=== PATIENT | male | born 1960 | race African-American/Black ===

== ENCOUNTER 2017-04-21 23:24 | Emergency (ER) | payer OTHER ==
[2017-04-21 23:33] VITALS: BP 144/83; PULSE 70; TEMP 98.2; BMI 31.4
--- NOTE | 2017-04-21 23:45 | PDOC ---
History of Present Illness - General History Source: Patient Exam Limitations: No Limitations <Melvina Finn - Last Filed: 04/22/17 00:33> <Yani Velasco - Last Filed: 04/23/17 01:49> - General Chief Complaint: Palpitations Stated Complaint: PAIN Time Seen by Provider: 04/21/17 23:44 - History of Present Illness Initial Comments: 04/22/17 00:04 The patient is a 56 year old male with history of hypertension brought in by EMS after feeling faint tonight. He states he was at home doing nothing in particular when he began to experience palpitations and generalized weakness. He states he felt lightheaded and faint while lying flat, unclear whether he lost consciousness. No fall or head trauma, witnessed by family at home. Family activated EMS. On evaluation, the patient is without physical complaint. No fever or chills. No nausea, vomiting, or diaphoresis. No chest pain. States he had a similar episode of near-syncope in December when he was found to be hypokalemic. 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 (Melvina Finn) Past History <Melvina Finn - Last Filed: 04/22/17 00:33> - Past Medical History COPD: No HTN: Yes Hypercholesterolemia: Yes - Suicide/Smoking/Psychosocial Hx Smoking History: Never smoked <Yani Velasco - Last Filed: 04/23/17 01:49> - Past Medical History Allergies/Adverse Reactions: Allergies Allergy/AdvReac Type Severity Reaction Status Date / Time No Known Allergies Allergy Verified 04/21/17 23:33 Home Medications: Ambulatory Orders Amlodipine Besylate [Norvasc -] 5 mg PO DAILY 04/21/17 Aspirin Coated [Ecotrin -] 325 mg PO DAILY 04/21/17 Atorvastatin Ca [Lipitor] 20 mg PO HS 04/21/17 Hydrochlorothiazide [Hctz -] 25 mg PO DAILY 04/21/17 Lisinopril [Prinivil] 20 mg PO DAILY 04/21/17 Metoprolol Succinate [Toprol Xl -] 25 mg PO BID 04/21/17 Review of Systems - Review of Systems Able to Perform ROS?: Yes <Melvina Finn - Last Filed: 04/22/17 00:33> <Yani Velasco - Last Filed: 04/23/17 01:49> - Review of Systems Comments:: 04/22/17 00:09 GENERAL/CONSTITUTIONAL: +Generalized weakness. No fever or chills. HEAD, EYES, EARS, NOSE AND THROAT: No change in vision. No ear pain or discharge. No sore throat. CARDIOVASCULAR: +Palpitations, lightheadedness, near syncope (resolved). No chest pain or shortness of breath. RESPIRATORY: No cough, wheezing, or hemoptysis. GASTROINTESTINAL: No nausea, vomiting, diarrhea or constipation. GENITOURINARY: No dysuria, frequency, or change in urination. MUSCULOSKELETAL: No joint or muscle swelling or pain. No neck or back pain. SKIN: No rash NEUROLOGIC: No headache, vertigo, loss of consciousness, or change in strength/ sensation. ENDOCRINE: No increased thirst. No abnormal weight change. HEMATOLOGIC/LYMPHATIC: No anemia, easy bleeding, or history of blood clots. ALLERGIC/IMMUNOLOGIC: No hives or skin allergy. (Melvina Finn) *Physical Exam <Melvina Finn - Last Filed: 04/22/17 00:33> <Yani Velasco - Last Filed: 04/23/17 01:49> - Vital Signs Last Vital Signs Temp Pulse Resp BP Pulse Ox 98.2 F 70 16 144/83 99 04/21/17 23:28 04/21/17 23:28 04/21/17 23:28 04/21/17 23:28 04/21/17 23:28 - Physical Exam Comments: 04/22/17 00:10 GENERAL: Awake, alert, and fully oriented, in no acute distress HEAD: No signs of trauma EYES: PERRLA, EOMI, sclera anicteric, conjunctiva clear ENT: Auricles normal inspection, nares patent. Moist mucosa NECK: Normal ROM, supple, no JVD, or masses LUNGS: Breath sounds equal, clear to auscultation bilaterally. No wheezes, and no crackles HEART: Regular rate and rhythm, normal S1 and S2, no murmurs, rubs or gallops ABDOMEN: Soft, nontender, normoactive bowel sounds. No guarding, no rebound. No masses EXTREMITIES: Normal range of motion, no edema. No clubbing or cyanosis. No cords, erythema, or tenderness NEUROLOGICAL: Alert and oriented x 3. Moves all extremities. Face is symmetric. SKIN: Warm, Dry, normal turgor, no rashes or lesions noted. (Melvina Finn) Heart Score/ECG Review <Melvina Finn - Last Filed: 04/22/17 00:33> <Yani Velasco - Last Filed: 04/23/17 01:49> #1 04/22/17 00:33 EKG obtained 0:31. Normal sinus rhythm at 66 bpm. Rightward axis. Borderline EKG. (Melvina Finn) ED Treatment Course - LABORATORY CBC & Chemistry Diagram: 04/22/17 01:11 04/22/17 02:13 <Yani Velasco - Last Filed: 04/23/17 01:49> - ADDITIONAL ORDERS Additional order review: 04/22/17 01:11 RBC 4.91 MCV 92.7 MCHC 33.4 RDW 13.2 MPV 10.0 Neutrophils % 73.6 Lymphocytes % 15.2 Monocytes % 10.3 H Eosinophils % 0.5 Basophils % 0.4 - RADIOLOGY Radiology Studies Ordered: Category Date Time Status CHEST X-RAY PORTABLE* [RAD] Stat Radiology 04/22/17 00:14 Completed - Medications Given in the ED: ED Medications Discontinued Medications Generic Name Dose Route Start Last Admin Trade Name Vanceq PRN Reason Stop Dose Admin Aspirin 162 mg 04/21/17 23:53 04/22/17 01:14 Asa - PO 04/21/17 23:54 162 mg ONCE ONE Administration *DC/Admit/Observation/Transfer <Melvina Finn - Last Filed: 04/22/17 00:33> <Yani Velasco - Last Filed: 04/23/17 01:49> Diagnosis at time of Disposition: Palpitations - Patient Instructions Printed Discharge Instructions: DI for Palpitations Additional Instructions: Take all home medications as prescribed. Follow-up with her primary care provider this week. Return to emergency department for any severe worsening symptoms or for any concerns. - Post Discharge Activity Forms/Work/School Notes: Back to Work - Attestations Scribe Attestion: 04/22/17 00:10 Documentation prepared by Melvina Finn, acting as medical geneticist for Yani Velasco MD. (Melvina Finn)
[2017-04-21] MEDS ORDERED: ASPIRIN 81 MG CHEWABLE TABLETS PO ONE (23:53)
[2017-04-22] MEDS ORDERED: ASPIRIN 81 MG CHEWABLE TABLETS ONE (00:57)
[2017-04-22 01:19] LABS: BASO % 0.4 % (0-2.0); EOS % 0.5 % (0-4.5); HEMATOCRIT 45.5 % (35.4-49); HEMOGLOBIN 15.2 GM/dL (11.7-16.9); LYMPH % 15.2 % (8-40); MCHC 33.4 g/dl (32.0-35.9); MEAN CELL VOLUME 92.7 fl (80-96); MONO % 10.3 % (3.8-10.2); NEUT % 73.6 % (42.8-82.8); PLATELET COUNT 166 K/MM3 (134-434); RBC 4.91 M/mm3 (4.00-5.60); RDW 13.2 % (11.9-15.9); WHITE BLOOD COUNT 10.6 K/mm3 (4.0-10.0)
[2017-04-22 01:51] LABS: INR 1.22 (0.82-1.09); PROTHROMBIN TIME (PATIENT) 13.8 SEC (9.98-11.88)
[2017-04-22 02:55] LABS: ALBUMIN 3.9 g/dl (3.4-5.0); ANION GAP 7 (8-16); BILIRUBIN,TOTAL 0.4 mg/dL (0.2-1.0); BLOOD UREA NITROGEN 17 mg/dL (7-18); CALCIUM 8.6 mg/dL (8.5-10.1); CHLORIDE 105 mmol/L (98-107); CO2 32 mmol/L (21-32); CREATININE 1.5 mg/dL (0.7-1.3); GLUCOSE,RANDOM 88 mg/dL (74-106); POTASSIUM 4.1 mmol/L (3.5-5.1); SGOT/AST 25 U/L (15-37); SGPT/ALT 36 U/L (12-78); SODIUM 144 mmol/L (136-145); TOT PROT 7.4 g/dl (6.4-8.2)
[2017-04-22 02:57] LABS: ALK PHOS 75 U/L (45-117); N-TERMINAL BNP 36.19 pg/ml (5-125)
--- NOTE | 2017-04-22 04:03 | PDOC ---
*Physical Exam - Vital Signs Last Vital Signs Temp Pulse Resp BP Pulse Ox 98.2 F 70 16 144/83 99 04/21/17 23:28 04/21/17 23:28 04/21/17 23:28 04/21/17 23:28 04/21/17 23:28 - Physical Exam General Appearance: Yes: Appropriately Dressed Respiratory/Chest: positive: Lungs Clear, Normal Breath Sounds Cardiovascular: positive: Regular Rhythm, Regular Rate ED Treatment Course - LABORATORY CBC & Chemistry Diagram: 04/22/17 01:11 04/22/17 02:13 - ADDITIONAL ORDERS Additional order review: Laboratory Results 04/22/17 04/22/17 04/22/17 02:40 02:13 01:11 PT with INR INR Sodium 144 Cancelled Potassium 4.1 Cancelled Chloride 105 Cancelled Carbon Dioxide 32 Cancelled Anion Gap 7 L Cancelled BUN 17 Cancelled Creatinine 1.5 H Cancelled Creat Clearance w eGFR 48.07 Cancelled Random Glucose 88 Cancelled Calcium 8.6 Cancelled Magnesium Cancelled Total Bilirubin 0.4 Cancelled AST 25 Cancelled ALT 36 Cancelled Alkaline Phosphatase 75 Cancelled Creatine Kinase 165 Cancelled Creatine Kinase Index 0.6 CK-MB (CK-2) < 1.000 Troponin I < 0.02 < 0.02 Cancelled B-Natriuretic Peptide 36.19 Cancelled Total Protein 7.4 Cancelled Albumin 3.9 Cancelled 04/22/17 01:11 PT with INR 13.80 H INR 1.22 H Sodium Potassium Chloride Carbon Dioxide Anion Gap BUN Creatinine Creat Clearance w eGFR Random Glucose Calcium Magnesium Total Bilirubin AST ALT Alkaline Phosphatase Creatine Kinase Creatine Kinase Index CK-MB (CK-2) Troponin I B-Natriuretic Peptide Total Protein Albumin 04/22/17 01:11 RBC 4.91 MCV 92.7 MCHC 33.4 RDW 13.2 MPV 10.0 Neutrophils % 73.6 Lymphocytes % 15.2 Monocytes % 10.3 H Eosinophils % 0.5 Basophils % 0.4 - Medications Given in the ED: ED Medications Discontinued Medications Generic Name Dose Route Start Last Admin Trade Name Freq PRN Reason Stop Dose Admin Aspirin 162 mg 04/21/17 23:53 04/22/17 01:14 Asa - PO 04/21/17 23:54 162 mg ONCE ONE Administration Medical Decision Making - Medical Decision Making 04/22/17 04:02 Asked to follow-up second troponin. Troponin negative 2. Heart score 1. Patient will follow-up with his primary care provider this week Findings, the need for follow-up, strict return instructions discussed with patient. *DC/Admit/Observation/Transfer Diagnosis at time of Disposition: Palpitations - Discharge Dispostion Admit: No - Referrals - Patient Instructions Printed Discharge Instructions: DI for Palpitations Additional Instructions: Take all home medications as prescribed. Follow-up with her primary care provider this week. Return to emergency department for any severe worsening symptoms or for any concerns. - Post Discharge Activity Forms/Work/School Notes: Back to Work
--- NOTE | 2017-04-22 11:28 | EKG ---
Test Reason : Blood Pressure : / mmHG Vent. Rate : 066 BPM Atrial Rate : 066 BPM P-R Int : 192 ms QRS Dur : 084 ms QT Int : 400 ms P-R-T Axes : 038 095 048 degrees QTc Int : 419 ms NORMAL SINUS RHYTHM RIGHTWARD AXIS BORDERLINE ECG NO PREVIOUS ECGS AVAILABLE Confirmed by MD Thai, Tylor ([id number]) on 04/22/2017 11:28:30 AM Referred By: Confirmed By:Tylor Andre MD
== END 2017-04-22 04:14 | disposition home or self-care (01) ==
LOC: JER 23:24
DX: R00.2 Palpitations (principal); I10 Essential (primary) hypertension; E78.00 Pure hypercholesterolemia, unspecified
CPT/HCPCS: 36415; 71045-TC-FY; 80053; 82550; 82553; 83880; 84484; 85025; 85610; 93005; 93010; 99281-25

== ENCOUNTER 2019-01-06 | Observation (INO) | payer OTHER ==
[2019-01-06 00:56] VITALS: BMI 31.8
--- NOTE | 2019-01-06 01:54 | PDOC ---
Attending Attestation - Resident Resident Name: Randee Urban - ED Attending Attestation I have performed the following: I have examined & evaluated the patient, The case was reviewed & discussed with the resident, I agree w/resident's findings & plan - HPI HPI: 01/06/19 03:01 see resident hpi - Physicial Exam PE: 01/06/19 03:01 agree with resident exam - Medical Decision Making 01/06/19 03:01 58-year-old male with palpitations while trying to sleep EKG shows some new T wave abnormalities in inferior lateral leads Patient does have a history of hypercholesterolemia and hypertension He will be held on medical service for observation and serial enzymes
--- NOTE | 2019-01-06 02:49 | PDOC ---
History of Present Illness - General Chief Complaint: Palpitations Stated Complaint: PANIC ATTACK Time Seen by Provider: 01/06/19 01:50 - History of Present Illness Initial Comments: 01/06/19 02:47 The patient is a 58 y/o male with a PMHx of HTN and HLD who presents to our ED this morning c/o palpitations. Patient states around 10 p.m. he was getting ready for bed when he felt his heart was racing. Patient states symptoms lasted approximately five minutes and there was no associated chest pain, lightheadedness, palpitations. Past History - Past Medical History Allergies/Adverse Reactions: Allergies Allergy/AdvReac Type Severity Reaction Status Date / Time No Known Allergies Allergy Verified 01/06/19 00:56 Home Medications: Ambulatory Orders Amlodipine Besylate [Norvasc -] 10 mg PO DAILY 04/21/17 Aspirin Coated [Ecotrin -] 325 mg PO DAILY 04/21/17 Atorvastatin Ca [Lipitor] 20 mg PO HS 04/21/17 Hydrochlorothiazide [Hctz -] 25 mg PO DAILY 04/21/17 Metoprolol Succinate [Toprol Xl -] 25 mg PO BID 04/21/17 COPD: No HTN: Yes Hypercholesterolemia: Yes - Psycho Social/Smoking Cessation Hx Smoking History: Never smoked Review of Systems - Review of Systems Constitutional: No: Chills, Fever HEENTM: No: Recent change in vision Respiratory: No: Cough, Shortness of Breath Cardiac (ROS): Yes: Palpitations. No: Chest Pain, Lightheadedness ABD/GI: No: Constipated, Diarrhea, Nausea, Vomiting *Physical Exam - Vital Signs Last Vital Signs Temp Pulse Resp BP Pulse Ox 98.1 F 85 18 118/81 100 01/06/19 00:55 01/06/19 00:55 01/06/19 00:55 01/06/19 00:55 01/06/19 00:55 - Physical Exam General Appearance: Yes: Nourished, Appropriately Dressed HEENT: positive: Normal Voice, Hearing Grossly Normal Neck: positive: Trachea midline, Supple Respiratory/Chest: positive: Lungs Clear, Normal Breath Sounds Cardiovascular: positive: S1, S2. 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 VS unremarkable Will evaluated for r/o ACS in addition will consider anemia, anxiety, electrolyte derangement, dehydration. PLAN: Troponin, EKG, CXR Reassess 01/06/19 02:54 EKG with ischemic changes in lateral leads - will plan for admission Patient counseled on plan of care, amenable to admission 01/06/19 05:32 Case d/w inpatient hospitalist service, will admit OBS Tele Clinical Impression: r/o ACS Discharge - Discharge Information Problems reviewed: Yes Clinical Impression/Diagnosis: Palpitations Condition: Fair - Admission Yes - Follow up/Referral - Patient Discharge Instructions - Post Discharge Activity
[2019-01-06 03:22] LABS: BASO % 1.4 % (0-2.0); EOS % 0.4 % (0-4.5); HEMATOCRIT 47.1 % (35.4-49); LYMPH % 24.5 % (8-40); MCH 32.3 pg (25.7-33.7); MEAN CELL VOLUME 94.8 fl (80-96); MEAN PLT VOLUME 8.9 fl (7.5-11.1); MONO % 7.3 % (3.8-10.2); NEUT % 66.4 % (42.8-82.8); PLATELET COUNT 203 K/MM3 (134-434); RBC 4.97 M/mm3 (4.00-5.60); RDW 12.6 % (11.9-15.9); WHITE BLOOD COUNT 8.3 K/mm3 (4.0-10.0)
[2019-01-06 03:48] LABS: ALBUMIN 4.2 g/dl (3.4-5.0); BILIRUBIN,TOTAL 0.3 mg/dL (0.2-1); BLOOD UREA NITROGEN 9.9 mg/dL (7-18); CALCIUM 9.2 mg/dL (8.5-10.1); CREATININE 1.3 mg/dL (0.55-1.3); POTASSIUM 4.1 mmol/L (3.5-5.1); TOT PROT 7.9 g/dl (6.4-8.2)
--- NOTE | 2019-01-06 05:14 | PN ---
Teaching Attending Note Name of Resident: Tammy Doshi ATTENDING PHYSICIAN STATEMENT I saw and evaluated the patient. I reviewed the resident's note and discussed the case with the resident. I agree with the resident's findings and plan as documented. SUBJECTIVE: Patient is a 58 year old man with a PMH of HTN, Presyncope, Palpitations and HLD who presents to the ER with complaint of palpitations. Patient states around 10 p.m. he was getting ready for bed when he felt his heart was racing. Patient states symptoms lasted approximately five minutes and there was no associated chest pain, lightheadedness, nausea, vomiting, fever, chills, SOB, abdominal pain, dysuria, frequency or urgency. Denies tobacco, alcohol or illicit drug use. No recent travel or sick contacts. No FH of premature CAD. OBJECTIVE: Alert Vital Signs Period Temp Pulse Resp BP Sys/Dia Pulse Ox Last 24 Hr 98.1 F 85 18 118/81 100 HEENT: No Jaundice, eye redness or discharge, PERRLA, EOMI. Normocephalic, atraumatic. External ears are normal and hearing is grossly intact. No nasal discharge. Neck: Supple, nontender. No palpable adenopathy or thyromegaly. No JVD Chest: Good effort. Clear to auscultation and percussion. Heart: Regular. No S3, rub or murmur Abdomen: Not distended, soft, nontender and no HSM. No rebound or guarding. Normal bowel sounds. Ext: Peripheral pulses intact. Leg edema. Skin: Warm and dry. No petechiae, rash or ecchymosis. Neuro: Alert. Oriented x3. CN 2-12 grossly intact. Sensation grossly intact in all four extremities and DTR are symmetric. Psych: Appropriate mood and affect. Good insight. Home Medications Medication Instructions Recorded Amlodipine Besylate [Norvasc -] 10 mg PO DAILY 04/21/17 Aspirin Coated [Ecotrin -] 325 mg PO DAILY 04/21/17 Atorvastatin Ca [Lipitor] 20 mg PO HS 04/21/17 Hydrochlorothiazide [Hctz -] 25 mg PO DAILY 04/21/17 Metoprolol Succinate [Toprol Xl -] 25 mg PO BID 04/21/17 Abnormal Lab Results 01/06/19 03:00 Anion Gap 5 L Random Glucose 112 H ASSESSMENT AND PLAN: 1. Palpitations - Etiology unclear. EKG shows NSR with ?new T wave flattening in III, aVF and inversion in V4-6 and initial troponin is negative. CXR shows elevated right hemidiaphragm (chronic), but no infiltrates, pneumothorax or effusion. Will admit to telemetry to rule out ACS, get TSH, HbA1c, urinalysis, fasting lipid profile, urine toxicology, ECHO and consult cardiology. If workup is negative, will consider outpatient cardiac monitoring in view of prior episodes of palpitations. Will reduce amlodipine to 5 mg PO q HS since it may be contributing to leg edema. Get abdominal sonogram to investigate chronic right hemidiaphragm elevation. Will continue comprehensive care for all of patients comorbid conditions. 2. Obesity Counseled on the risks associated with obesity. Will provide patient all the necessary assistance, counseling and positive reinforcement to facilitate weight loss. Consult buildings and grounds coordinator. 3. Hypertension - Restart suitable outpatient antihypertensive drugs when clinically appropriate. Revise regimen to ensure [id number] excellent BP control and baby counselor patient on the injurious effects of uncontrolled hypertension. Nonpharmacologic measures to control hypertension like weight loss , salt restriction and exercise discussed. Importance of adherence to treatment regimen and attainment of normotension emphasized. 4. DVT prophylaxis - Lovenox 40 mg SQ q 24 hours. 5. Advance directives - Full code
--- NOTE | 2019-01-06 06:17 | HP ---
CHIEF COMPLAINT: unprovoked palpitations PCP: unknown HISTORY OF PRESENT ILLNESS: 58 year old male with past medical history of panic attacks, hypertension, hyperlipidemia presents to the ED with a chief complaint of heart palpitations. Around 10 pm last night, pt was lying flat on the bed watching television when he started feeling heart palpitations. 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 Patients endorses left sided chest pressure for the past few months which is evident after eating and reports that laying on his left side alleviates his symptoms. Pt complains of bilateral lower leg swelling which he started noticing after taking amlodipine. Denies orthopnea, paroxysmal nocturnal dyspnea, shortness of breath with exercise, fatigue, chest pain, dizziness, nausea, headaches, changes in bowel movement and changes in urination. ER course was notable for: (1) CBC and CMP unremarkable (2) EKG shows NSR with ?new T wave flattening in III, aVF and inversion in V4-6 and initial troponin is negative. (3) CXR shows elevated right hemidiaphragm (chronic), but no infiltrates, pneumothorax or effusion Recent Travel: denies PAST MEDICAL HISTORY: as above PAST SURGICAL HISTORY: none Social History: Smoking: denies Alcohol: denies Drugs: denies Allergies No Known Allergies Allergy (Verified 01/06/19 00:56) HOME MEDICATIONS: Home Medications Medication Instructions Recorded Amlodipine Besylate [Norvasc -] 10 mg PO DAILY 04/21/17 Aspirin Coated [Ecotrin -] 325 mg PO DAILY 04/21/17 Atorvastatin Ca [Lipitor] 20 mg PO HS 04/21/17 Hydrochlorothiazide [Hctz -] 25 mg PO DAILY 04/21/17 Metoprolol Succinate [Toprol Xl -] 25 mg PO BID 04/21/17 REVIEW OF SYSTEMS CONSTITUTIONAL: Absent: fever, chills, diaphoresis, generalized weakness, malaise, loss of appetite, weight change HEENT: Absent: rhinorrhea, nasal congestion, throat pain, throat swelling, difficulty swallowing, mouth swelling, ear pain, eye pain, visual changes CARDIOVASCULAR: palpitations Absent: chest pain, syncope, irregular heart rate, lightheadedness, peripheral edema RESPIRATORY: Absent: cough, shortness of breath, dyspnea with exertion, orthopnea, wheezing, stridor, hemoptysis GASTROINTESTINAL: Absent: abdominal pain, abdominal distension, nausea, vomiting, diarrhea, constipation, melena, hematochezia GENITOURINARY: Absent: dysuria, frequency, urgency, hesitancy, hematuria, flank pain, genital pain MUSCULOSKELETAL: Absent: myalgia, arthralgia, joint swelling, back pain, neck pain SKIN: Absent: rash, itching, pallor HEMATOLOGIC/IMMUNOLOGIC: Absent: easy bleeding, easy bruising, lymphadenopathy, frequent infections ENDOCRINE: Absent: unexplained weight gain, unexplained weight loss, heat intolerance, cold intolerance NEUROLOGIC: Absent: headache, focal weakness or paresthesias, dizziness, unsteady gait, seizure, mental status changes, bladder or bowel incontinence PSYCHIATRIC: Absent: anxiety, depression, suicidal or homicidal ideation, hallucinations. PHYSICAL EXAMINATION Vital Signs - 24 hr 01/06/19 01/06/19 00:55 05:38 Temperature 98.1 F Pulse Rate 85 Pulse Rate [ 68 Left Radial] Respiratory 18 18 Rate Blood Pressure 118/81 Blood Pressure 139/85 [Right Arm] O2 Sat by Pulse 100 99 Oximetry (%) GENERAL: Awake, alert, and fully oriented, in no acute distress. HEAD: Normal with no signs of trauma. EYES: Pupils equal, round and reactive to light, extraocular movements intact, sclera anicteric, conjunctiva clear. No lid lag. EARS, NOSE, THROAT: oropharynx clear without exudates. Moist mucous membranes. NECK: Normal range of motion, supple without lymphadenopathy, JVD, or masses. LUNGS: Breath sounds equal, clear to auscultation bilaterally. No wheezes, and no crackles. No accessory muscle use. HEART: Regular rate and rhythm, normal S1 and S2 without murmur, rub or gallop. ABDOMEN: Soft, nontender,obese, normoactive bowel sounds, no guarding, no rebound, umbilical hernia. No hepatomegaly or splenomegaly. MUSCULOSKELETAL: Normal range of motion at all joints. No bony deformities or tenderness. No CVA tenderness. UPPER EXTREMITIES: 2+ pulses, warm, well-perfused. No cyanosis. No clubbing. No peripheral edema. LOWER EXTREMITIES: 2+ pulses, warm, well-perfused. No calf tenderness. + peripheral edema. NEUROLOGICAL: Cranial nerves II-XII intact. Normal speech. Normal gait. PSYCHIATRIC: Cooperative. Good eye contact. Appropriate mood and affect. SKIN: Warm, dry, normal turgor, no rashes or lesions noted, normal capillary refill. Laboratory Results - last 24 hr 01/06/19 01/06/19 03:00 03:00 WBC 8.3 RBC 4.97 Hgb 16.0 Hct 47.1 MCV 94.8 MCH 32.3 MCHC 34.0 RDW 12.6 Plt Count 203 D MPV 8.9 D Absolute Neuts (auto) 5.5 Neutrophils % 66.4 Lymphocytes % 24.5 D Monocytes % 7.3 Eosinophils % 0.4 Basophils % 1.4 D Nucleated RBC % 0 Sodium 142 Potassium 4.1 Chloride 104 Carbon Dioxide 32 Anion Gap 5 L BUN 9.9 Creatinine 1.3 Est GFR (CKD-EPI)AfAm 68.74 Est GFR (CKD-EPI)NonAf 59.31 Random Glucose 112 H Calcium 9.2 Total Bilirubin 0.3 AST 26 ALT 30 Alkaline Phosphatase 101 Creatine Kinase 163 Creatine Kinase Index 0.6 CK-MB (CK-2) 1.1 Troponin I 0.03 Total Protein 7.9 Albumin 4.2 ASSESSMENT/PLAN: Unprovoked palpitations- unclear source admit to tele Cardiology Dr Simmons consulted repeat EKG trend trops. neg x1 echo for cardiac function assessment TSH, HbA1C, lipid panel UA urine toxicology if work up, unremarkable, consider o/p monitoring for arrhythmias or poss pAfib Elevated right hemidiaphragm abdominal US HTN resume home meds consider change to norvasc at night and at dose of 5mg to reduce leg edema HLD cont lipitor once med rec DVT lovenox daily Visit type - Emergency Visit Emergency Visit: Yes ED Registration Date: 01/06/19 Care time: The patient presented to the Emergency Department on the above date and was hospitalized for further evaluation of their emergent condition. - New Patient This patient is new to me today: Yes Date on this admission: 01/06/19 - Critical Care Critical Care patient: No ATTENDING PHYSICIAN STATEMENT I saw and evaluated the patient. I reviewed the resident's note and discussed the case with the resident. I agree with the resident's findings and plan as documented. SUBJECTIVE: OBJECTIVE: ASSESSMENT AND PLAN:
[2019-01-06 09:52] VITALS: TEMP 98.3
[2019-01-06] MEDS ORDERED: metoPROLOL SUCCINATE 25 MG TAB.SR.24H (FP) PO SCH ×2 (10:00→14:40)
[2019-01-06] MEDS ORDERED: ENOXAPARIN NA (PORCINE) 40 MG/0.4 ML DISP.SYRIN SQ SCH (10:00)
[2019-01-06] MEDS ORDERED: HYDROCHLOROTHIAZIDE 25 MG TABLET (FP) PO SCH (10:00)
--- NOTE | 2019-01-06 13:12 | ECHO ---
Name: TOÑO CHIU Exam:Adult Echocardiogram Study Date: 01/06/2019 09:55 AM Age: 58 yrs Reason For Study: LV Function Height: 66 in Weight: 197 lb BSA: 2.0 m2 MMode/2D Measurements & Calculations IVSd: 0.96 cm Ao root diam: 2.9 cm LVIDd: 3.7 cm LA dimension: 2.7 cm LVIDs: 2.2 cm LVPWd: 0.95 cm EDV(Teich): 56.7 ml LVOT diam: 2.0 cm ESV(Teich): 15.9 ml LAV (MOD-bp): 33.3 ml Doppler Measurements & Calculations MV E max ankit: 103.0 cm/sec Ao V2 max: 146.6 cm/sec MV A max ankit: 85.9 cm/sec Ao max P.6 mmHg MV E/A: 1.2 MV dec time: 0.18 sec AIME(V,D): 2.2 cm2 LV V1 max P.6 mmHg TR max ankit: 129.0 cm/sec LV V1 max: 106.7 cm/sec TR max P.7 mmHg PA V2 max: 134.4 cm/sec Med Peak E' Ankit: 4.6 cm/sec PA max P.2 mmHg Med E/e': 22.5 Lat Peak E' Ankit: 5.9 cm/sec Lat E/e': 17.5 PI Vmax: 95.0 cm/sec Procedure A two-dimensional transthoracic echocardiogram with color flow and Doppler was performed. The study w as technically difficult with many images being suboptimal in quality. Left Ventricle The left ventricular size, thickness and function are normal. The left ventricular ejection fraction is normal. The transmitral spectral Doppler flow pattern is normal for age. The left ventricular wall mo tion is normal. Right Ventricle The right ventricle is normal in size and function. Atria Normal left and right atrial size and function. Mitral Valve There is mild mitral valve thickening. There is no mitral valve stenosis. There is trace to mild mitr al regurgitation. Tricuspid Valve The tricuspid valve is not well visualized. There is no tricuspid stenosis. There was insufficient TR detected to calculate RV systolic pressure. Aortic Valve The aortic valve is not well visualized. No hemodynamically significant valvular aortic stenosis. No aortic regurgitation is present. Pulmonic Valve The pulmonic valve is not well visualized. Great Vessels The aortic root is normal size. Pericardium/Pleura There is no pericardial effusion. Interpretation Summary The study was technically difficult with many images being suboptimal in quality. The left ventricular size, thickness and function are normal The left ventricular ejection fraction is normal. The left ventricular wall motion is normal. The transmitral spectral Doppler flow pattern is normal for age. There is trace to mild mitral regurgitation. There was insufficient TR detected to calculate RV systolic pressure. MD Kuldip Tamayo 01/06/2019 01:12 PM
--- NOTE | 2019-01-06 14:09 | CON.CARD ---
Consult Consult Specialty:: cardiology Referred by:: Steven Reason for Consultation:: Palpitations - History of Present Illness Chief Complaint: Palpitations History of Present Illness: PATIENT IS A 58-YEAR-OLD MAN WITH A HISTORY OF HYPERTENSION AND HYPERLIPIDEMIA, WHO HAS BEEN VERY ACTIVE WITHOUT ANY IMPORTANT LIMITATIONS NOR SYMPTOMSNOW PRESENTING WITH PALPITATIONS. THE PATIENT WAS SITTING DOWN WATCHING tv AND WAS ABOUT TO GET READY FOR BED WHEN HE BEGAN EXPERIENCING A POUNDING SENSATION IN HIS CHEST.sYMPTOMS BEGAN ABRUPTLY. tHEY RESOLVED SPONTANEOUSLY5 MINUTES LATER.dENIES CHEST PAINS AND SHORTNESS OF BREATH. tHE PALPITATIONS DID NOT RECUR. THE PATIENT IS CURRENTLY COMFORTABLE AND SYMPTOM FREE. dENIED PRIOR SUCH SYMPTOMS. dENIED ANY IMPORTANT LIMITATIONS ON EFFORT. - History Source History Provided By: Patient Limitations to Obtaining History: No Limitations - Past Medical History Cardio/Vascular: Yes: HTN - Smoking History Smoking history: Never smoked Home Medications - Allergies Allergies/Adverse Reactions: Allergies Allergy/AdvReac Type Severity Reaction Status Date / Time No Known Allergies Allergy Verified 01/06/19 00:56 - Home Medications Home Medications: Ambulatory Orders Amlodipine Besylate [Norvasc -] 10 mg PO DAILY 04/21/17 Aspirin Coated [Ecotrin -] 325 mg PO DAILY 04/21/17 Atorvastatin Ca [Lipitor] 20 mg PO HS 04/21/17 Hydrochlorothiazide [Hctz -] 25 mg PO DAILY 04/21/17 Metoprolol Succinate [Toprol Xl -] 25 mg PO BID 04/21/17 Review of Systems - Review of Systems Constitutional: reports: No Symptoms Eyes: reports: No Symptoms HENT: reports: No Symptoms Neck: reports: No Symptoms Cardiovascular: reports: No Symptoms Respiratory: reports: No Symptoms Gastrointestinal: reports: No Symptoms Genitourinary: reports: No Symptoms Breasts: reports: No Symptoms Reported Musculoskeletal: reports: No Symptoms Integumentary: reports: No Symptoms Neurological: reports: No Symptoms Endocrine: reports: No Symptoms Hematology/Lymphatic: reports: No Symptoms Psychiatric: reports: No Symptoms Vital Signs: Vital Signs Temperature 98.3 F 01/06/19 07:30 Pulse Rate 89 01/06/19 07:30 Respiratory Rate 18 01/06/19 07:30 Blood Pressure 123/82 01/06/19 07:30 O2 Sat by Pulse Oximetry (%) 99 01/06/19 07:30 Constitutional: Yes: Well Nourished, No Distress, Calm Eyes: Yes: WNL, Conjunctiva Clear, EOM Intact HENT: Yes: WNL, Atraumatic, Normocephalic Neck: Yes: WNL, Supple, Trachea Midline Respiratory: Yes: WNL, Regular, CTA Bilaterally Gastrointestinal: Yes: WNL, Normal Bowel Sounds, Soft Renal/: Yes: WNL Cardiovascular: Yes: WNL, Regular Rate and Rhythm JVD: No Carotid Bruit: No PMI: Non-Displaced Heart Sounds: Yes: S1, S2 Musculoskeletal: Yes: WNL Extremities: Yes: WNL Edema: No Peripheral Pulses WNL: Yes Integumentary: Yes: WNL Neurological: Yes: WNL, Alert, Oriented ...Motor Strength: WNL - Other Data Labs, Other Data: CBC, BMP 01/06/19 03:00 01/06/19 03:00 Troponin, BNP 01/06/19 01/06/19 03:00 12:55 Troponin I 0.03 < 0.02 Troponin, BNP 01/06/19 01/06/19 03:00 12:55 Troponin I 0.03 < 0.02 Assessment/Plan the patient is a 58-year-old manwith a history of hypertension and hyperlipidemia, who presented todaywith palpitations. There is no evidence of ischemia nor acute coronary syndrome. No CHF. No ischemic ECG changes. No chest pains. The patient has been in sinus rhythm in the hospital. Symptoms did not recur. There was no syncope.No dizziness.No lightheadedness. The echocardiogram was essentially normal. I believe that the patient is stable for discharge. Stop norvasc Change Toprol-XL to 75 mg once daily Continue the other medications as currently. please arrange for an outpatient follow-up visit with next week arnav do not hesitate to call us PRN.
[2019-01-06 16:08] VITALS: BP 142/99; PULSE 95
--- NOTE | 2019-01-06 17:49 | PN ---
Teaching Attending Note Name of Resident: Aram Velasco ATTENDING PHYSICIAN STATEMENT I saw and evaluated the patient. I reviewed the resident's note and discussed the case with the resident. I agree with the resident's findings and plan as documented. SUBJECTIVE: no CP or SOB , no fever or chills. reports that eyes are red around this time of the year due to allergies OBJECTIVE: injected conjunctivae CV: RRR, no MRG NAD Lungs L CTAB Ext : No edema or erythema ASSESSMENT AND PLAN: 58 y/o man with h/o HTN and anxiety who presented with palpitations 1- Palpitations, r/o arrhythmias vs PAnic attacks - echo , card notes reviewed - f/u for holter or event monitor - if anxiety is a problem, then address as out pt - No h/o VT, CAD or stroke or PVD. he was advised to take aspirin 81 mg instead of 325 daily . f/u with PCP 2-elevated R hemidiaphragm, CT chest as out pt . he was made aware dispo : dc home
--- NOTE | 2019-01-06 18:57 | DS ---
Physical Exam: SUBJECTIVE: Patient seen and examined. Pt asymptomatic, afebrile without any further c/o or issues. Denies f/c/n/v/d/sob/chest pain. OBJECTIVE: Vital Signs Period Temp Pulse Resp BP Sys/Dia Pulse Ox Last 24 Hr 98.1 F-98.3 F 68-95 18-18 118-142/81-99 99-100 PHYSICAL EXAM GENERAL: The patient is awake, alert, and fully oriented, in no acute distress. EYES: PERRL, extraocular movements intact, Eyes red b/l ENT: oropharynx clear without exudates, moist mucous membranes. NECK: full range of motion, supple. LUNGS: Breath sounds equal, clear to auscultation bilaterally, no wheezes, no crackles, HEART: Regular rate and rhythm, S1, S2 without murmur, rub or gallop. ABDOMEN: Soft, nontender, nondistended, normoactive bowel sounds, no guarding, no rebound EXTREMITIES: 2+ pulses, warm, NEUROLOGICAL: Cranial nerves II through XII grossly intact. SKIN: Warm, dry, LABS WBC 8.3 K/mm3 (4.0-10.0) 01/06/19 03:00 RBC 4.97 M/mm3 (4.00-5.60) 01/06/19 03:00 Hgb 16.0 GM/dL (11.7-16.9) 01/06/19 03:00 Hct 47.1 % (35.4-49) 01/06/19 03:00 MCV 94.8 fl (80-96) 01/06/19 03:00 MCH 32.3 pg (25.7-33.7) 01/06/19 03:00 MCHC 34.0 g/dl (32.0-35.9) 01/06/19 03:00 RDW 12.6 % (11.9-15.9) 01/06/19 03:00 Plt Count 203 K/MM3 (134-434) D 01/06/19 03:00 MPV 8.9 fl (7.5-11.1) D 01/06/19 03:00 Absolute Neuts (auto) 5.5 K/mm3 (1.5-8.0) 01/06/19 03:00 Neutrophils % 66.4 % (42.8-82.8) 01/06/19 03:00 Lymphocytes % 24.5 % (8-40) D 01/06/19 03:00 Monocytes % 7.3 % (3.8-10.2) 01/06/19 03:00 Eosinophils % 0.4 % (0-4.5) 01/06/19 03:00 Basophils % 1.4 % (0-2.0) D 01/06/19 03:00 Nucleated RBC % 0 % (0-0) 01/06/19 03:00 Sodium 142 mmol/L (136-145) 01/06/19 03:00 Potassium 4.1 mmol/L (3.5-5.1) 01/06/19 03:00 Chloride 104 mmol/L (98-107) 01/06/19 03:00 Carbon Dioxide 32 mmol/L (21-32) 01/06/19 03:00 Anion Gap 5 MMOL/L (8-16) L 01/06/19 03:00 BUN 9.9 mg/dL (7-18) 01/06/19 03:00 Creatinine 1.3 mg/dL (0.55-1.3) 01/06/19 03:00 Est GFR (CKD-EPI)AfAm 68.74 01/06/19 03:00 Est GFR (CKD-EPI)NonAf 59.31 01/06/19 03:00 Random Glucose 112 mg/dL (74-106) H 01/06/19 03:00 Hemoglobin A1c % 5.2 % (4.2-6.3) 01/06/19 12:55 Calcium 9.2 mg/dL (8.5-10.1) 01/06/19 03:00 Total Bilirubin 0.3 mg/dL (0.2-1) 01/06/19 03:00 AST 26 U/L (15-37) 01/06/19 03:00 ALT 30 U/L (13-61) 01/06/19 03:00 Alkaline Phosphatase 101 U/L (45-117) 01/06/19 03:00 Creatine Kinase 163 U/L (26-308) 01/06/19 03:00 Creatine Kinase Index 0.6 % (0.0-5.0) 01/06/19 03:00 CK-MB (CK-2) 1.1 ng/mL (0.5-3.6) 01/06/19 03:00 Troponin I < 0.02 ng/ml (0.00-0.05) 01/06/19 12:55 Total Protein 7.9 g/dl (6.4-8.2) 01/06/19 03:00 Albumin 4.2 g/dl (3.4-5.0) 01/06/19 03:00 Triglycerides 77 mg/dL (0-150) 01/06/19 12:55 Cholesterol 150 mg/dL (50-200) 01/06/19 12:55 Total LDL Cholesterol 84 mg/dL (5-100) 01/06/19 12:55 HDL Cholesterol 55 mg/dL (40-60) 01/06/19 12:55 TSH 1.16 uIU/ml (0.358-3.74) 01/06/19 12:55 Home Medications Medication Instructions Recorded Atorvastatin Ca [Lipitor] 20 mg PO HS 04/21/17 Hydrochlorothiazide [Hctz -] 25 mg PO DAILY 04/21/17 Aspirin 81 mg PO DAILY #30 tab.chew 01/06/19 Metoprolol Succinate [Toprol Xl] 75 mg PO DAILY #90 tab.er.24h 01/06/19 Potassium Chloride 10 meq PO DAILY 01/06/19 HOSPITAL COURSE: Date of Admission:01/06/19 58 y/o male with past medical history of panic attacks, hypertension, hyperlipidemia presents to the ED with a chief complaint of heart palpitations of 7 minute duration that self resolved. Pt was worked up for r/o of ACS. Trops were negative x2, EKG NSR with new T wave flattening in III, aVF and inversion in V4-6, ECHO was negative. Pt's home medication was adjusted by cardiology, including stopping norvasc and increasing toprol to 75mg/d. Pt was advised to f/ u with Dr. Li and his primary care and discharged home. ECHO- negative EKG- NSR with new T wave flattening in III, aVF and inversion in V4-6 U/S abdomen- mild fatty liver changes Date of Discharge: 01/06/19 Minutes to complete discharge: 35 Discharge Summary Problems reviewed: Yes Reason For Visit: PALPITATIONS Condition: Improved - Instructions Diet, Activity, Other Instructions: You were admitted to the hospital for palpitations of your heart. While you were in the hospital, we evaluated you with blood work, lab work, EKG , and imaging including echocardiogram of your heart. Your symptoms have resolved and your heart is functioning well. We made some changes to your blood pressure medication Please stop taking your Norvasc for now and follow up with your primary care physician and telephone lines repairer Please begin taking Toprol XL 75 mg once daily by mouth. Please follow up with your primary care physician to have a CAT scan of your chest. due to the elevation in your diaphragm Follow up with Dr. Li, the telephone lines repairer in 1 week Follow up with your Primary care physician in 1 week Please take all your medications as prescribed Return to the emergency room, if you experience any worsening of your symptoms, chest pain, shortness of breath, nausea, vomiting, or any other health issues. Referrals: [facility] [place] [place] [Provider Group] Sadi Li MD [Staff Physician] - 1 Week Disposition: HOME - Home Medications Comprehensive Discharge Medication List: Ambulatory Orders Atorvastatin Ca [Lipitor] 20 mg PO HS 04/21/17 Hydrochlorothiazide [Hctz -] 25 mg PO DAILY 04/21/17 Aspirin 81 mg PO DAILY #30 tab.chew 01/06/19 Metoprolol Succinate [Toprol Xl] 75 mg PO DAILY #90 tab.er.24h 01/06/19 Potassium Chloride 10 meq PO DAILY 01/06/19 This patient is new to me today: Yes Date on this admission: 01/06/19 Emergency Visit: Yes ED Registration Date: 01/06/19 Care time: The patient presented to the Emergency Department on the above date and was hospitalized for further evaluation of their emergent condition. Critical Care patient: No - Discharge Referral Referred to [facility] No ATTENDING PHYSICIAN STATEMENT I saw and evaluated the patient. I reviewed the resident's note and discussed the case with the resident. I agree with the resident's findings and plan as documented. SUBJECTIVE: OBJECTIVE: ASSESSMENT AND PLAN:
[2019-01-06] MEDS ORDERED: amLODIPine BESYLATE 5 MG TABLET (FP) PO SCH (22:00)
[2019-01-06] MEDS ORDERED: ATORVASTATIN CA 20 MG TABLET (FP) PO SCH (22:00)
[2019-01-07] MEDS ORDERED: ASPIRIN 325 MG ENTERIC COATED TABLET (FP) PO SCH (10:00)
--- NOTE | 2019-01-07 14:46 | EKG ---
Test Reason : Blood Pressure : / mmHG Vent. Rate : 067 BPM Atrial Rate : 067 BPM P-R Int : 190 ms QRS Dur : 082 ms QT Int : 398 ms P-R-T Axes : 025 083 030 degrees QTc Int : 420 ms NORMAL SINUS RHYTHM NONSPECIFIC T WAVE ABNORMALITY ABNORMAL ECG WHEN COMPARED WITH ECG OF 22-APR-2017 00:31, NONSPECIFIC T WAVE ABNORMALITY NOW EVIDENT IN LATERAL LEADS Confirmed by ADAN YOUSIF, ALBIN ([id number]) on 01/07/2019 2:46:03 PM Referred By: Confirmed By:ALBIN ARELLANO MD
== END 2019-01-06 17:34 | disposition home or self-care (01) ==
LOC: JER → JERBED 05:37
PROVIDERS: ADMIT Internal Medicine; ATTEND Internal Medicine
PROC: 3E013GC Introduction of Other Therapeutic Substance into Subcutaneous Tissue, Percutaneous Approach (ICD-10-PCS; principal; 2019-01-06)
DX: R00.2 Palpitations (principal); J98.6 Disorders of diaphragm; R94.8 Abnormal results of function studies of other organs and systems; I10 Essential (primary) hypertension; E78.5 Hyperlipidemia, unspecified; E66.9 Obesity, unspecified; Z68.31 Body mass index [BMI] 31.0-31.9, adult; Z79.82 Long term (current) use of aspirin
CPT/HCPCS: 36415; 71045-TC-FY; 76705-TC; 80053; 80061; 82550; 82553; 83036; 83721; 84443; 84484; 85025; 93005; 93010; 93306-TC; 96372; 99285-25; G0378

== ENCOUNTER 2019-01-11 21:03 | Emergency (ER) | payer OTHER ==
--- NOTE | 2019-01-11 21:18 | PDOC ---
Rapid Medical Evaluation Chief Complaint: Palpitations Time Seen by Provider: 01/11/19 21:15 Medical Evaluation: Allergies Allergy/AdvReac Type Severity Reaction Status Date / Time No Known Allergies Allergy Verified 01/06/19 00:56 01/11/19 21:15 I have performed a brief in-person evaluation of this patient. The patient presents with a chief complaint of:palpitations with chest pain, started ~ 2 hours ago. with rest after dinner Pertinent physical exam findings: well appearing, , I have ordered the following: EKG, CbC, CMP, Card enzymes The patient will proceed to the ED for further evaluation. 01/11/19 21:16 Discharge Disposition - Diagnosis Palpitations - Referrals - Patient Instructions - Post Discharge Activity
[2019-01-11 21:19] VITALS: BMI 30.4
[2019-01-11 21:50] LABS: BASO % 0.8 % (0-2.0); EOS % 0.9 % (0-4.5); HEMATOCRIT 45.9 % (35.4-49); HEMOGLOBIN 15.7 GM/dL (11.7-16.9); LYMPH % 26.9 % (8-40); MCH 31.7 pg (25.7-33.7); MCHC 34.2 g/dl (32.0-35.9); MEAN CELL VOLUME 92.5 fl (80-96); MEAN PLT VOLUME 8.6 fl (7.5-11.1); MONO % 9.9 % (3.8-10.2); NEUT % 61.5 % (42.8-82.8); PLATELET COUNT 221 K/MM3 (134-434); RBC 4.96 M/mm3 (4.00-5.60); RDW 12.6 % (11.9-15.9); WHITE BLOOD COUNT 7.7 K/mm3 (4.0-10.0)
[2019-01-11 22:01] LABS: INR 1.24 (0.83-1.09); PROTHROMBIN TIME (PATIENT) 14.7 SEC (9.7-13.0)
--- NOTE | 2019-01-11 22:02 | PDOC ---
Attending Attestation - Resident Resident Name: Angie Lawson - ED Attending Attestation I have performed the following: I have examined & evaluated the patient, The case was reviewed & discussed with the resident, I agree w/resident's findings & plan - HPI HPI: 01/11/19 23:04 see resident hpi - Physicial Exam PE: 01/11/19 23:04 agree with resident exam - Medical Decision Making 01/11/19 23:04 58-year-old male with palpitations seen here recently for the same EKG shows no significant changes Labs were unremarkable except for a mild hypokalemia treated with 40 mEq of potassium p.o. in the emergency department Case discussed with patient's tree trimmer who will see him in the morning for Holter placement
--- NOTE | 2019-01-11 22:12 | PDOC ---
History of Present Illness - General Chief Complaint: Palpitations Stated Complaint: PALPITATION Time Seen by Provider: 01/11/19 21:15 History Source: Patient Exam Limitations: No Limitations - History of Present Illness Initial Comments: 58 year old male with PMH HTN, HLD, panic disorder presented to ED for palpitations occurring around 1930 tonight while laying in bed. Pt reported he felt his heart racing for <10 minutes, associated with generalized weakness. Pt denied chest pain, shortness of breath, lower extremity swelling, fever, cough, vomiting, abdominal pain, body aches, lightheadedness, passing out, or any other complaints. Pt reported he has felt this sensation for many years, usually the episodes are associated with leaning to the left "and placing my heart against my rib cage" but are usually 6-8 months apart. He reported despite being admitted 01/06/19 for the same complaint, he felt he needed medical evaluation today because it occurred twice in one week. Pt denied hx of malignancy, surgery, travel>5 hours, bed rest>3 days, hemoptysis, hormone use. Cardiac history - brother [place] at 50 yo; denied cardiac history for mother/father ROS General: admitted to generalized weakness. denied fever, chills. HEENT: denied sore throat, rhinorrhea, ear pain. Cardiovascular: admitted to palpitations. denied chest pain, syncope, diaphoresis. Respiratory: denied shortness of breath, cough, sputum production, hemoptysis. Gastrointestinal: denied abdominal pain, nausea, vomiting, diarrhea, constipation, blood in stool. Genitourinary: denied dysuria, increased urinary frequency, hematuria, urinary incontinence, flank pain. Back: denied back pain. Musculoskeletal: denied joint pain, muscle pain, joint swelling. Neurological: denied headache, dizziness, numbness, tingling, weakness. Integumentary: denied rash, laceration, abrasion. Hematologic/Lymphatic: denied bruising or bleeding. PE Constitutional: Well-nourished, Well-developed, appearing stated age. HEENT: head is normocephalic, atraumatic. EOMI. PERRLA. Neck: supple. Full ROM. Cardiovascular: regular heart rhythm. no murmurs. no pericardial friction rub. no tachycardia. Respiratory: clear to auscultation bilaterally. no crackles, rhonchi or wheezing. no stridor. Gastrointestinal: soft, nontender. normal bowel sounds. no rebound, guarding, masses. Extremities: peripheral pulses intact. no lower extremity edema. Neurological: CN 2-12 grossly intact. moves all four extremities. Psych: awake, alert, oriented x3. follows commands. answers questions appropriately. Past History - Past Medical History Allergies/Adverse Reactions: Allergies Allergy/AdvReac Type Severity Reaction Status Date / Time No Known Allergies Allergy Verified 01/11/19 21:22 Home Medications: Ambulatory Orders Atorvastatin Ca [Lipitor] 20 mg PO HS 04/21/17 Hydrochlorothiazide [Hctz -] 25 mg PO DAILY 04/21/17 Aspirin 81 mg PO DAILY #30 tab.chew 01/06/19 Metoprolol Succinate [Toprol Xl] 75 mg PO DAILY #90 tab.er.24h 01/06/19 Potassium Chloride 10 meq PO DAILY 01/06/19 COPD: No HTN: Yes Hypercholesterolemia: Yes - Psycho Social/Smoking Cessation Hx Smoking History: Never smoked Have you smoked in the past 12 months: No Information on smoking cessation initiated: No Hx Alcohol Use: No Drug/Substance Use Hx: No *Physical Exam - Vital Signs Last Vital Signs Temp Pulse Resp BP Pulse Ox 82 18 148/83 100 01/11/19 21:16 01/11/19 21:16 01/11/19 21:16 01/11/19 21:16 ED Treatment Course - LABORATORY CBC & Chemistry Diagram: 01/11/19 21:33 01/11/19 21:33 - ADDITIONAL ORDERS Additional order review: Laboratory Results 01/11/19 21:33 PT with INR 14.70 H INR 1.24 H 01/11/19 21:33 RBC 4.96 MCV 92.5 MCHC 34.2 RDW 12.6 MPV 8.6 Neutrophils % 61.5 Lymphocytes % 26.9 Monocytes % 9.9 Eosinophils % 0.9 D Basophils % 0.8 Medical Decision Making - Medical Decision Making 58 year old male with above PMH presented to ED for palpitations. Initial Vital Signs Pulse Resp BP Pulse Ox 82 18 148/83 100 01/11/19 21:16 01/11/19 21:16 01/11/19 21:16 01/11/19 21:16 No tachycardia. No tachypnea. Mild hypertension. No hypoxia on room air. EKG performed at 2122: rate 76, regular rhythm, normal axis, normal intervals, flat T in V5/V6/III/aVL. -Similar to prior performed 01/06/19, though V5 appears flatter CBC WBC 7.7 K/mm3 (4.0-10.0) 01/11/19 21:33 RBC 4.96 M/mm3 (4.00-5.60) 01/11/19 21:33 Hgb 15.7 GM/dL (11.7-16.9) 01/11/19 21:33 Hct 45.9 % (35.4-49) 01/11/19 21:33 MCV 92.5 fl (80-96) 01/11/19 21:33 MCH 31.7 pg (25.7-33.7) 01/11/19 21:33 MCHC 34.2 g/dl (32.0-35.9) 01/11/19 21:33 RDW 12.6 % (11.9-15.9) 01/11/19 21:33 Plt Count 221 K/MM3 (134-434) 01/11/19 21:33 MPV 8.6 fl (7.5-11.1) 01/11/19 21:33 Absolute Neuts (auto) 4.7 K/mm3 (1.5-8.0) 01/11/19 21:33 Neutrophils % 61.5 % (42.8-82.8) 01/11/19 21:33 Lymphocytes % 26.9 % (8-40) 01/11/19 21:33 Monocytes % 9.9 % (3.8-10.2) 01/11/19 21:33 Eosinophils % 0.9 % (0-4.5) D 01/11/19 21:33 Basophils % 0.8 % (0-2.0) 01/11/19 21:33 Nucleated RBC % 0 % (0-0) 01/11/19 21:33 CMP Sodium 139 mmol/L (136-145) 01/11/19 21:33 Potassium 3.3 mmol/L (3.5-5.1) L 01/11/19 21:33 Chloride 99 mmol/L (98-107) 01/11/19 21:33 Carbon Dioxide 33 mmol/L (21-32) H 01/11/19 21:33 Anion Gap 8 MMOL/L (8-16) 01/11/19 21:33 BUN 10.8 mg/dL (7-18) 01/11/19 21:33 Creatinine 1.4 mg/dL (0.55-1.3) H 01/11/19 21:33 Est GFR (CKD-EPI)AfAm 62.84 01/11/19 21:33 Est GFR (CKD-EPI)NonAf 54.22 01/11/19 21:33 Random Glucose 144 mg/dL (74-106) H 01/11/19 21:33 Calcium 9.3 mg/dL (8.5-10.1) 01/11/19 21:33 Total Bilirubin 0.5 mg/dL (0.2-1) 01/11/19 21:33 AST 24 U/L (15-37) 01/11/19 21:33 ALT 32 U/L (13-61) 01/11/19 21:33 Alkaline Phosphatase 93 U/L (45-117) 01/11/19 21:33 Creatine Kinase 166 U/L (26-308) 01/11/19 21:33 Creatine Kinase Index No Result Required. 01/11/19 21:33 CK-MB (CK-2) < 1.0 ng/mL (0.5-3.6) 01/11/19 21:33 Troponin I < 0.02 ng/ml (0.00-0.05) 01/11/19 21:33 B-Natriuretic Peptide 29.7 pg/ml (5-125) 01/11/19 21:33 Total Protein 7.6 g/dl (6.4-8.2) 01/11/19 21:33 Albumin 4.0 g/dl (3.4-5.0) 01/11/19 21:33 No leukocytosis. No anemia. Cr 1.3 prior Troponin undetectable Mild hypokalemia. Medications ordered: KCL 40 mEq PO once, normal saline bolus 1000 cc once Pt reported he still feels generally weak. I spoke with the patient's director of learning, Dr. Rodriguez ([phone]), who reported that if the patient does not feel back to his baseline he will accept transfer to [facility]. 01/12/19 00:39 Transport arrived. 01/12/19 00:58 Pt left ED with EMS. Discharge - Discharge Information Problems reviewed: Yes Clinical Impression/Diagnosis: Palpitations, Hypokalemia Condition: Stable Disposition: TRANSFER ACUTE CARE/OTHER HOSP - Admission No - Follow up/Referral Referrals: Berhane Lindsay [Primary Care Provider] - - Patient Discharge Instructions Patient Printed Discharge Instructions: DI for Hypokalemia, DI for Palpitations Additional Instructions: Follow up with your Textile [employer]othing [employer] Foot[employer] Mechanic Dr. Rodriguez tomorrow, call in the morning [phone], he is expecting your call. He will see you tomorrow morning. Your potassium was low, have your primary care doctor or director of learning repeat blood work within 7 days. Return to the Emergency Department for palpitations, chest pain, shortness of breath, vomiting, fever, lightheadedness, passing out, dizziness, swelling in the legs or any other new, worsening or concerning symptoms. - Post Discharge Activity Work/Back to School Note: Back to Work
[2019-01-11 22:22] LABS: ALK PHOS 93 U/L (45-117); ANION GAP 8 MMOL/L (8-16); BILIRUBIN,TOTAL 0.5 mg/dL (0.2-1); BLOOD UREA NITROGEN 10.8 mg/dL (7-18); CALCIUM 9.3 mg/dL (8.5-10.1); CHLORIDE 99 mmol/L (98-107); CO2 33 mmol/L (21-32); CREATININE 1.4 mg/dL (0.55-1.3); GLUCOSE,RANDOM 144 mg/dL (74-106); POTASSIUM 3.3 mmol/L (3.5-5.1); SGOT/AST 24 U/L (15-37); SGPT/ALT 32 U/L (13-61); SODIUM 139 mmol/L (136-145); TOT PROT 7.6 g/dl (6.4-8.2)
[2019-01-11 22:47] LABS: N-TERMINAL BNP 29.7 pg/ml (5-125)
[2019-01-11] MEDS ORDERED: POTASSIUM CHLORIDE TABS 10 MEQ TABLET.ER (FP) PO ONE (23:01)
[2019-01-11] MEDS ORDERED: SODIUM CHLORIDE 1,000 ML IV STA (23:13)
[2019-01-11] MEDS ORDERED: POTASSIUM CHLORIDE TABS 20 MEQ TABLET.ER (FP) PO ONE (23:29)
[2019-01-12 00:45] VITALS: BP 112/62; PULSE 62; TEMP 97.9
--- NOTE | 2019-01-12 10:36 | EKG ---
Test Reason : Blood Pressure : / mmHG Vent. Rate : 076 BPM Atrial Rate : 076 BPM P-R Int : 170 ms QRS Dur : 086 ms QT Int : 384 ms P-R-T Axes : 046 084 053 degrees QTc Int : 432 ms NORMAL SINUS RHYTHM NORMAL ECG Confirmed by MD LUIS, DARA ([id number]) on 01/12/2019 10:36:25 AM Referred By: Confirmed By:DARA SMITH MD
== END 2019-01-12 05:00 | disposition short-term general hospital (02) ==
LOC: JER 21:03
PROC: 3E0337Z Introduction of Electrolytic and Water Balance Substance into Peripheral Vein, Percutaneous Approach (ICD-10-PCS; principal; 2019-01-11)
DX: R00.2 Palpitations (principal); E87.6 Hypokalemia
CPT/HCPCS: 36415; 80053; 82550; 82553; 83880; 84484; 85025; 85610; 93005; 93010; 99284-25; J7030

== ENCOUNTER 2019-03-17 23:51 | Emergency (ER) | payer OTHER ==
[2019-03-18 00:04] VITALS: BP 143/84; TEMP 98.3; BMI 30.7
--- NOTE | 2019-03-18 01:08 | PDOC ---
Documentation entered by Shama Roman SCRIBE, acting as scribe for Jaelyn Tinoco DO. Jaelyn Tinoco DO: This documentation has been prepared by the Abel celis Xhesika, SCRIBE, under my direction and personally reviewed by me in its entirety. I confirm that the documentation accurately reflects all work, treatment, procedures, and medical decision making performed by me. Attending Attestation - Resident Resident Name: Joel Santana - ED Attending Attestation I have performed the following: I have examined & evaluated the patient, The case was reviewed & discussed with the resident, I agree w/resident's findings & plan, Exceptions are as noted - HPI HPI: 03/18/19 00:57 The patient is a 58 year old male with no significant PMH of HTN, HLD, panic disorder who presents to the emergency department BIBA for palpitations that began at 8:50pm. Pt states he was laying in bed when he felt his pulse was beating harder and faster than normal. Pt notes he felt slightly SOB when he was calling 911, which has since been resolved. Pt denies any chest pain or palpitations currently in the ED. The patient denies new onset leg swelling, chest pain, shortness of breath, headache and dizziness. Denies fever, chills, cough, nausea, vomiting, diarrhea and constipation. Denies dysuria, frequency, urgency and hematuria. Allergies: NKDA. peanut - Physicial Exam PE: 03/18/19 00:58 GENERAL: Awake, alert, and fully oriented, in no acute distress HEAD: No signs of trauma EYES: PERRLA, EOMI, sclera anicteric, conjunctiva clear ENT: Auricles normal inspection, hearing grossly normal, nares patent, oropharynx clear without exudates. Moist mucosa NECK: Normal ROM, supple, no lymphadenopathy, JVD, or masses LUNGS: Breath sounds equal, clear to auscultation bilaterally. No wheezes, and no crackles HEART: Regular rate and rhythm, normal S1 and S2, no murmurs, rubs or gallops ABDOMEN: Soft, nontender, normoactive bowel sounds. No guarding, no rebound. No masses EXTREMITIES: Normal range of motion, no edema. No clubbing or cyanosis. No cords, erythema, or tenderness NEUROLOGICAL: Cranial nerves II through XII grossly intact. Normal speech, normal gait SKIN: Warm, Dry, normal turgor, no rashes or lesions noted. - Medical Decision Making 03/18/19 01:04 I, Dr. Jaelyn Tinoco, DO, attest that this document has been prepared under my direction and personally reviewed by me in its entirety. I further attest, that it accurately reflects all work, treatment, procedures and medical decision -making performed by me. a/p: 58yo male with hx of htn and palpitations with "heavy" heart beats tonight -states he started to feel anxious/nervous after his heart started to palpate -denies cp/sob -pt states he took his norvasc, metoprolol this AM as scheduled -pt had a loop recorder placed at [facility] about 1.5m ago and it was normal - will send labs, tsh -pt currently asymptomatic -will obtain ekg -will monitor and reassess 03/18/19 02:12 no elevated wbc chem pending 03/18/19 02:21 cxr clear 03/18/19 02:23 pt signed out pending labs Heart Score/ECG Review - ECG Intrepretation Comment:: 03/18/19 01:18 sinus at 63, nl axis, nl interval, no acute st/t wave findings
--- NOTE | 2019-03-18 01:19 | PDOC ---
History of Present Illness - General Chief Complaint: Palpitations Stated Complaint: PALPITATION /HYERTENSION Time Seen by Provider: 03/18/19 00:10 History Source: Patient - History of Present Illness Initial Comments: 58F PMH HTN HLD BIBEMS for palpitations that started around 8pm when patient was resting in bed after dinner. Pt describes as gradual onset pounding heart beat w/o chest pain or sob. Sx decreased when EMS arrived and currently ASx. Denies f/c, n/v, diarrhea, dysuria. Denies heat / cold intolerance. NKDA; peanut allergy Meds: amlodipine, atorvastatin Past History - Past Medical History Allergies/Adverse Reactions: Allergies Allergy/AdvReac Type Severity Reaction Status Date / Time peanut Allergy Verified 03/18/19 00:04 Home Medications: Ambulatory Orders Atorvastatin Ca [Lipitor] 20 mg PO HS 04/21/17 Hydrochlorothiazide [Hctz -] 25 mg PO DAILY 04/21/17 Aspirin 81 mg PO DAILY #30 tab.chew 01/06/19 Metoprolol Succinate [Toprol Xl] 75 mg PO DAILY #90 tab.er.24h 01/06/19 Potassium Chloride 10 meq PO DAILY 01/06/19 COPD: No HTN: Yes Hypercholesterolemia: Yes - Psycho Social/Smoking Cessation Hx Smoking History: Unknown if ever smoked Have you smoked in the past 12 months: No Hx Alcohol Use: No Drug/Substance Use Hx: No Review of Systems - Review of Systems Comments:: CONSTITUTIONAL: Denies F / C HEENT: Denies headache, lightheadedness, dizziness, sore throat, rhinorrhea RESP: Denies SOB, cough CARD: Endorses palpitations. Denies chest pain GI: Denies N / V / D, abdominal pain, bloody stool, inability to tolerate PO : Denies dysuria, frequency SKIN: Denies rashes NEURO: Denies numbness, tingling, weakness MSK: Denies back pain *Physical Exam - Vital Signs Last Vital Signs Temp Pulse Resp BP Pulse Ox 98.3 F 18 143/84 100 03/17/19 23:54 03/17/19 23:54 03/17/19 23:54 03/17/19 23:54 - Physical Exam GEN: Well appearing, NAD, comfortable. AAOx3. HEENT: NC/AT, EOMI, PERRL. No facial asymmetry. Normal voice. Supple neck w/ FROM. CV: S1/S2, RRR, no m/r/g LUNG: CTAB, no wheezes, crackles, rales, rhonchi. GI: Soft, ndnt, +BS, no guarding, no rebound. EXTREMITIES: No LE edema. No obvious deformities of all extremities. SKIN: Warm, dry, no rashes appreciated. PSYCH: Normal mood and affect. NEURO: Moving all extremities well. ED Treatment Course - LABORATORY CBC & Chemistry Diagram: 03/18/19 01:30 03/18/19 01:30 Medical Decision Making - Medical Decision Making 03/18/19 01:08 58F PMH HTN HLD BIBEMS for palpitations cbc, cmp, cardiac, coag, tsh ekg cxr likely dispo home 03/18/19 02:53 labs reviewed, reassuring f/u TSH CXR reviewed by ED team - no acute pathology noted 03/18/19 03:01 TSH wnl DC home w/ pcp and cards f/u Discharge - Discharge Information Problems reviewed: Yes Clinical Impression/Diagnosis: Palpitations Condition: Stable Disposition: HOME - Admission No - Follow up/Referral Referrals: Kendall Simmons MD [Staff Physician] - - Patient Discharge Instructions Patient Printed Discharge Instructions: DI for Palpitations Additional Instructions: See your primary care doctor in the next 2-3 days. Follow up with Cardiology in the next 2-3 days. We are referring you to Cardiology, please schedule an appointment at the number below. Alternatively you can use any mail distributor in your network. Continue your home medications as prescribed. Immediately return to the nearest Emergency Department if you experience: - continuous palpitations - chest pain - shortness of breath - anything that concerns you - Post Discharge Activity
[2019-03-18 02:05] VITALS: PULSE 81
[2019-03-18 02:08] LABS: BASO % 0.4 % (0-2.0); EOS % 1.5 % (0-4.5); HEMATOCRIT 44.4 % (35.4-49); HEMOGLOBIN 15.1 GM/dL (11.7-16.9); LYMPH % 22.4 % (8-40); MCH 31.8 pg (25.7-33.7); MCHC 34.1 g/dl (32.0-35.9); MEAN CELL VOLUME 93.4 fl (80-96); MEAN PLT VOLUME 9.2 fl (7.5-11.1); MONO % 12.1 % (3.8-10.2); NEUT % 63.6 % (42.8-82.8); PLATELET COUNT 211 K/MM3 (134-434); RBC 4.75 M/mm3 (4.00-5.60); RDW 12.6 % (11.9-15.9); WHITE BLOOD COUNT 7.5 K/mm3 (4.0-10.0)
[2019-03-18 02:20] LABS: INR 1.23 (0.83-1.09); PROTHROMBIN TIME (PATIENT) 14.5 SEC (9.7-13.0)
[2019-03-18 02:23] LABS: ACTIVATED PTT 31.9 SECONDS (25.2-36.5)
[2019-03-18 02:51] LABS: ALBUMIN 3.9 g/dl (3.4-5.0); BILIRUBIN,TOTAL 0.5 mg/dL (0.2-1); BLOOD UREA NITROGEN 11.3 mg/dL (7-18); CALCIUM 9.1 mg/dL (8.5-10.1); CREATININE 1.2 mg/dL (0.55-1.3); POTASSIUM 3.8 mmol/L (3.5-5.1); TOT PROT 7.7 g/dl (6.4-8.2)
--- NOTE | 2019-03-18 15:11 | EKG ---
Test Reason : Blood Pressure : / mmHG Vent. Rate : 063 BPM Atrial Rate : 063 BPM P-R Int : 180 ms QRS Dur : 068 ms QT Int : 376 ms P-R-T Axes : 025 068 034 degrees QTc Int : 384 ms POOR DATA QUALITY, INTERPRETATION MAY BE ADVERSELY AFFECTED NORMAL SINUS RHYTHM NORMAL ECG WHEN COMPARED WITH ECG OF 11-JAN-2019 21:22, NO SIGNIFICANT CHANGE WAS FOUND Confirmed by ADAN YOUSIF, ALBIN ([id number]) on 03/18/2019 3:10:47 PM Referred By: Confirmed By:ALBIN ARELLANO MD
== END 2019-03-18 03:12 | disposition home or self-care (01) ==
LOC: JER 23:51
DX: R00.2 Palpitations (principal); I10 Essential (primary) hypertension; E78.5 Hyperlipidemia, unspecified; F41.0 Panic disorder [episodic paroxysmal anxiety]; Z95.810 Presence of automatic (implantable) cardiac defibrillator; Z91.010 Allergy to peanuts
CPT/HCPCS: 36415; 71045-TC-FY; 80053; 82550; 84443; 84484; 85025; 85610; 85730; 93005; 93010; 99283-25

== ENCOUNTER 2019-10-15 00:26 | Observation (INO) | payer OTHER ==
--- NOTE | 2019-10-15 00:43 | PDOC ---
History of Present Illness - General Stated Complaint: DIZZY Time Seen by Provider: 10/15/19 00:42 - History of Present Illness Initial Comments: 10/15/19 01:07 58 year old man with a PMH of HTN, HLD, and Anxiety presenting w lightheadedness and LOC while laying in bed trying to fall asleep. Denies head trauma, fever, n/v, chest pain, SOB. Pt specifies that his symptoms are different than what he feels when falling asleep. Hasnt f/u w specialists from last admission. Admitted on 10/07/19 for presyncope and dizziness attributed to high dose HCTZ. Recent echo w normal LVEF Dec 2018, neg carotid duplex. Past History - Medical History Allergies/Adverse Reactions: Allergies Allergy/AdvReac Type Severity Reaction Status Date / Time peanut Allergy Verified 10/15/19 00:27 Home Medications: Ambulatory Orders Atorvastatin Ca [Lipitor] 20 mg PO HS 04/21/17 Aspirin 81 mg PO DAILY #30 tab.chew 01/06/19 Potassium Chloride 10 meq PO DAILY 01/06/19 Amlodipine Besylate [Norvasc -] 10 mg PO DAILY 10/07/19 Escitalopram Oxalate [Lexapro -] 10 mg PO DAILY 10/07/19 Hydrochlorothiazide [Hctz -] 12.5 mg PO DAILY #15 tablet 10/07/19 Metoprolol Tartrate [Lopressor -] 25 mg PO BID 10/07/19 Risperidone 0.5 mg PO BID 10/07/19 COPD: No HTN: Yes Hypercholesterolemia: Yes - Immunization History Immunization Up to Date: Yes - Psycho-Social/Smoking History Smoking History: Never smoked Have you smoked in the past 12 months: No Review of Systems - Review of Systems Constitutional: No: Chills, Fever HEENTM: No: Eye Pain, Nose Congestion Respiratory: No: Cough, Shortness of Breath Cardiac (ROS): No: Chest Pain, Palpitations ABD/GI: No: Abdominal Distended, Constipated, Diarrhea : No: Burning, Dysuria Musculoskeletal: No: Back Pain, Joint Pain Integumentary: No: Bruising, Flushing Neurological: No: Headache, Seizure Psychiatric: No: Anxiety, Depression Endocrine: No: Intolerance to Cold, Intolerance to Heat Hematologic/Lymphatic: No: Anemia, Blood Clots *Physical Exam - Physical Exam General Appearance: Yes: Nourished, Appropriately Dressed, Mild Distress HEENT: positive: EOMI, HUMBERTO, Normal Voice, Hearing Grossly Normal. negative: Scleral Icterus (R), Scleral Icterus (L) Respiratory/Chest: positive: Lungs Clear, Normal Breath Sounds. negative: Chest Tender, Respiratory Distress Cardiovascular: positive: Regular Rhythm, Regular Rate, S1, S2. negative: Edema, Murmur Gastrointestinal/Abdominal: positive: Normal Bowel Sounds, Flat, Soft. negative : Tender, Organomegaly Extremity: positive: Delayed Capillary Refill Integumentary: positive: Normal Color, Dry, Warm Neurologic: positive: csr technician II-XII NML intact, Fully Oriented, Alert, Normal Mood/Affect, Normal Response, Motor Strength 5/5, Responsive. negative: Numbness, Sensory Deficit, Confused, Disoriented ED Treatment Course - LABORATORY CBC & Chemistry Diagram: 10/15/19 02:15 10/15/19 02:15 Medical Decision Making - Medical Decision Making 10/15/19 01:52 EKG - NSR, HR 60, QTc 410, no ST changes CXR - clear lung arredodno, unchanged --- 58 year old man with a PMH of HTN, HLD, and Anxiety presenting w lightheadedness and LOC while laying in bed trying to fall asleep. Syncope vs falling asleep. Cr 1.7 unchanged. No focal neuro deficits lowering concern for CVA. Given 1L NS, felt better Admit tele/obvs Dr Hernandez hospitalist for syncope Discharge - Discharge Information Problems reviewed: Yes Clinical Impression/Diagnosis: Dehydration Syncope Qualifiers: Syncope type: unspecified Qualified Code(s): R55 - Syncope and collapse Condition: Stable - Follow up/Referral - Patient Discharge Instructions - Post Discharge Activity
[2019-10-15] MEDS ORDERED: SODIUM CHLORIDE 0.9% 500 ML INFUS.BAG IV ONE (01:50)
--- NOTE | 2019-10-15 02:21 | PDOC ---
Attending Attestation - Resident Resident Name: RajeevMichael - ED Attending Attestation I have performed the following: I have examined & evaluated the patient, The case was reviewed & discussed with the resident, I agree w/resident's findings & plan, Exceptions are as noted - HPI HPI: 10/15/19 04:28 See resident HPI - Physicial Exam PE: 10/15/19 04:28 Agree with documented exam - Medical Decision Making 10/15/19 04:28 Pre-syncopal/syncopal episodes before falling asleep, no prodrome f/u labs, ekg, cxr dispo per clincal course Discharge - Discharge Information Problems reviewed: Yes Clinical Impression/Diagnosis: Dehydration Syncope Qualifiers: Syncope type: unspecified Qualified Code(s): R55 - Syncope and collapse Condition: Stable - Follow up/Referral - Patient Discharge Instructions - Post Discharge Activity
[2019-10-15 02:27] LABS: BASO % 0.9 % (0-2.0); EOS % 0.6 % (0-4.5); HEMATOCRIT 45.9 % (35.4-49); HEMOGLOBIN 15.4 GM/dL (11.7-16.9); LYMPH % 20.9 % (8-40); MCH 31.8 pg (25.7-33.7); MCHC 33.4 g/dl (32.0-35.9); MEAN PLT VOLUME 10.7 fl (7.5-11.1); MONO % 12.2 % (3.8-10.2); NEUT % 65.4 % (42.8-82.8); PLATELET COUNT 139 K/MM3 (134-434); RBC 4.84 M/mm3 (4.00-5.60); RDW 12.9 % (11.9-15.9); WHITE BLOOD COUNT 7.7 K/mm3 (4.0-10.0)
[2019-10-15 02:58] LABS: ALK PHOS 85 U/L (45-117); ANION GAP 5 MMOL/L (8-16); BILIRUBIN,TOTAL 0.6 mg/dL (0.2-1); BLOOD UREA NITROGEN 17.3 mg/dL (7-18); CALCIUM 9.1 mg/dL (8.5-10.1); CHLORIDE 104 mmol/L (98-107); CO2 32 mmol/L (21-32); CREATININE 1.7 mg/dL (0.55-1.3); GLUCOSE,RANDOM 94 mg/dL (74-106); SGOT/AST 26 U/L (15-37); SGPT/ALT 51 U/L (13-61); SODIUM 140 mmol/L (136-145); TOT PROT 7.7 g/dl (6.4-8.2)
--- NOTE | 2019-10-15 05:01 | PN ---
Teaching Attending Note Name of Resident: Slim Reddy ATTENDING PHYSICIAN STATEMENT I saw and evaluated the patient. I reviewed the resident's note and discussed the case with the resident. I agree with the resident's findings and plan as documented. SUBJECTIVE: OBJECTIVE: ASSESSMENT AND PLAN: 58 year old man with a PMHx notable HTN, HLD, and Anxiety presenting with syncope. PLAN Admit to telemetry unit regarding further work-up syncope: Neurogenic vs cardiac Recent CT head imaging no acute findings Trend cardiac enzymes
[2019-10-15] MEDS ORDERED: SODIUM CHLORIDE 1,000 ML IV SCH (05:30)
[2019-10-15 06:07] VITALS: BMI 31.7
--- NOTE | 2019-10-15 06:14 | CON.CARD ---
Consult Consult Specialty:: Cardiology Referred by:: Dr. Santizo Reason for Consultation:: syncope - History of Present Illness Chief Complaint: "almost blacked out" History of Present Illness: 58 M HTN describes an episode of profound weakness while laying in bed, worse when stood up associated with blurred vision. Complains of recent low blood pressure readings at home prompting him to occasionally hold his BP meds. Recent visit here 10/06 for similar presentation: echo and carotid normal. Denies CP/SOB/palps. All focal neuro deficits resolved. 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: No: Alzheimer's, CVA, Dementia, Migraine, Multiple Sclerosis, Peripheral Neuropathy, Parkinson's, Seizure, Syncope, TIA, Vertigo, Other Cardio/Vascular: Yes: HTN Pulmonary: No: Asthma, Bronchitis, Cancer, COPD, O2 Dependent, Pneumonia, Previously Intubated, Pulmonary Embolus, Pulmonary Fibrosis, Sleep Apnea, Other Gastrointestinal: No: Ascites, Cancer, Constipation, Crohn's Disease, Diverticulitis, Diverticulosis, Esophageal Varices, Gastritis, GERD, GI Bleed, Hemorrhoids, Hiatal Hernia, Inflamatory Bowel Disease, Irritable Bowel Disease, Pancreatitis, Peptic Ulcer Disease, Ulcerative Colitis, Other Hepatobiliary: No: Cirrhosis, Cholelithiasis, Cholecystitis, Choledocholithia sis, Hepatitis A, Hepatitis B, Hepatitis C, Other Renal/: No: Renal Failure, Renal Inusuff, BPH, Cancer, Hematuria, Hemodialysis, Neurogenic Bladder, Renal Calculi, UTI, Other Heme/Onc: No: Anemia, B12 Deficiency, Bleeding Disorder, Cancer, Current Chemotherapy, Current Radiation Therapy, Hemochromatosis, Hypercoaguable State, Myeloproliferative Synd, Sickle Cell Disease, Sickle Cell Trait, Thrombocytopenia, Other Infectious Disease: No: AIDS, C-Diff, Herpes Zoster, HIV, MRSA, STD's, Tuberculosis, VREF, Other Psych: No: Addictions, Anxiety, Bipolar, Depression, Panic, Psychosis, Schizophrenia, Other Musculoskeletal: No: Bursitis, Chronic low back pain, Hemiparesis, Hemiplegia, Osteoarthritis, Paraplegia, Other Rheumatology: No: Fibromyalgia, Gout, Lupus, Rheumatoid Arthritis, Sarcoidosis, Vasculitis, Other ENT: No: Allergic Rhinitis, Sinusitis, Other Endocrine: No: Traill's Disease, Kulm's Disease, Diabetes Insipidus, Diabetes Mellitus, Hyperparathyroidism, Hyperthyroidism, Hypothyroidism, Osteopenia, SIADH, Other - Alcohol/Substance Use Hx Alcohol Use: No - Smoking History Smoking history: Never smoked Have you smoked in the past 12 months: No - Social History Usual Living Arrangement: Other (With roommate) Occupation: works at [employer] History of Recent Travel: No Home Medications - Allergies Allergies/Adverse Reactions: Allergies Allergy/AdvReac Type Severity Reaction Status Date / Time peanut Allergy Verified 10/15/19 00:27 - Home Medications Home Medications: Ambulatory Orders Atorvastatin Ca [Lipitor] 20 mg PO HS 04/21/17 Potassium Chloride 10 meq PO DAILY 01/06/19 Amlodipine Besylate [Norvasc -] 10 mg PO DAILY 10/07/19 Hydrochlorothiazide [Hctz -] 12.5 mg PO DAILY #15 tablet 10/07/19 Metoprolol Tartrate [Lopressor -] 25 mg PO BID 10/07/19 Risperidone 0.5 mg PO BID 10/07/19 Aspirin 325 mg PO DAILY 10/15/19 Family Medical History Family History: Unremarkable (non contrib to this presentation) Review of Systems - Review of Systems Constitutional: reports: No Symptoms Eyes: reports: No Symptoms HENT: reports: No Symptoms Neck: reports: No Symptoms Cardiovascular: reports: No Symptoms Respiratory: reports: No Symptoms Gastrointestinal: reports: No Symptoms Genitourinary: reports: No Symptoms Breasts: reports: No Symptoms Reported Musculoskeletal: reports: No Symptoms Integumentary: reports: No Symptoms Neurological: reports: Weakness Endocrine: reports: No Symptoms Hematology/Lymphatic: reports: No Symptoms Psychiatric: reports: No Symptoms - Risk Factors Known Risk Factors: Yes: Hypertension Vital Signs: Vital Signs Temperature 98.8 F 10/15/19 06:05 Pulse Rate 73 10/15/19 06:05 Respiratory Rate 18 10/15/19 06:05 Blood Pressure 144/90 10/15/19 06:05 O2 Sat by Pulse Oximetry (%) 99 10/15/19 06:05 Constitutional: Yes: No Distress, Calm Eyes: Yes: Conjunctiva Clear, EOM Intact HENT: Yes: Atraumatic, Normocephalic Neck: Yes: Supple, Trachea Midline Respiratory: Yes: Regular, CTA Bilaterally Gastrointestinal: Yes: Soft (nt) Cardiovascular: Yes: Regular Rate and Rhythm JVD: No Carotid Bruit: No PMI: Non-Displaced Heart Sounds: Yes: S1, S2 (rrr, no M/R/G) Edema: No Peripheral Pulses WNL: Yes Neurological: Yes: Alert, Oriented ...Motor Strength: WNL - Other Data Labs, Other Data: CBC, BMP 10/15/19 02:15 10/15/19 02:15 Troponin, BNP 10/15/19 02:15 Troponin I < 0.02 Troponin, BNP 10/15/19 02:15 Troponin I < 0.02 Laboratory Tests 10/15/19 10/15/19 10/15/19 03:53 06:28 06:28 WBC 6.0 Hgb 14.7 Plt Count 136 Potassium 3.8 Creatinine 1.5 H COVID-19 (BEULAH) Pending see HPI Echo: Report Reviewed Ejection Fraction %: LVEF > or = 40 % Imaging - Results Chest X-ray: Image Reviewed EKG: Image Reviewed (TELE: NSR) Assessment/Plan IMP: Near syncope with recent admission 10/07/2019 normal echo and carotid US Chronic HTN HLD REC: 1. Near syncope: with worsened sx upon standing -Normal EF, normal ECG, unremarkable tele -Sx appear to be orthostatic -Check orthostatics -D/c HCTZ -Goal BP < 140/90 2. Chronic HTN: -Goal BP < 140/90 3. HLD: -fasting lipids
--- NOTE | 2019-10-15 06:16 | HP ---
CHIEF COMPLAINT: pre-syncope PCP: at [facility] HISTORY OF PRESENT ILLNESS: Pt is a 58 year old man with a PMH of HTN, HLD, and Anxiety presenting to the ER complaining of an episode where he felt like he was going to "lose consciousness" that was associated with generalized weakness and dizziness. The patient was just admitted on 10/07/2019 for the same complaint. The pt describes the episode as follows. The pt was sitting in bed after eating dinner when he started suddenly feeling dizzy/lightheaded and generally weak. During this time, he describes feeling generally weak but still being able to move all his extremities adequately. He also describes his vision becoming blurry for a short period of time. All of his symptoms resolved spontaneously and without intervention within 15 minutes. Pt again reports that he need to improve his daily water intake. Pt denies syncope, fall, head trauma, nausea, vomiting, chest pain, SOB, palpitation, numbness, or confusion before/after the episode. Pt has outpatient follow-up appointments next week. Last admission was attribute to high dose HCTZ and those dose was subsequently cut down. 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 Lives with a roommate (his friend of many years) in an apt in [place]. Pt started experiencing anxiety starting April of this year - several of his friend and family have during the COVID-19 pandemic. Smoking: denies Alcohol: denies Drugs: denies Allergies peanut Allergy (Verified 10/15/19 00:27) HOME MEDICATIONS: Home Medications Medication Instructions Recorded Atorvastatin Ca [Lipitor] 20 mg PO HS 04/21/17 Potassium Chloride 10 meq PO DAILY 01/06/19 Amlodipine Besylate [Norvasc -] 10 mg PO DAILY 10/07/19 Hydrochlorothiazide [Hctz -] 12.5 mg PO DAILY #15 tablet 10/07/19 Metoprolol Tartrate [Lopressor -] 25 mg PO BID 10/07/19 Risperidone 0.5 mg PO BID 10/07/19 Aspirin 325 mg PO DAILY 10/15/19 REVIEW OF SYSTEMS as per HPI PHYSICAL EXAMINATION Vital Signs - 24 hr 10/15/19 10/15/19 00:43 02:53 Temperature 98.2 F Pulse Rate 75 Respiratory 20 Rate Blood Pressure 142/83 O2 Sat by Pulse 99 99 Oximetry (%) VS: orthostatic vitals negative GENERAL: Awake, alert, and fully oriented, in no acute distress. Anxious appearing. HEAD: Normal with no signs of trauma. EYES: Pupils equal, round and reactive to light, extraocular movements intact, sclera anicteric, conjunctival injection appreciated - pt states that is how they look at baseline. EARS, NOSE, THROAT: oropharynx clear without exudates. Moist mucous membranes. NECK: Normal range of motion, supple without lymphadenopathy LUNGS: Breath sounds equal, clear to auscultation bilaterally. No wheezes, and no crackles. No accessory muscle use. HEART: Regular rate and rhythm, normal S1 and S2 without murmur, rub or gallop. ABDOMEN: Soft, nontender, not distended, normoactive bowel sounds, no guarding, no rebound, no masses. No hepatomegaly. MUSCULOSKELETAL: moving all extremities equally and spontaneously. UPPER EXTREMITIES: 2+ pulses, warm, well-perfused. No peripheral edema. LOWER EXTREMITIES: 2+ pulses, warm, well-perfused. No peripheral edema. NEUROLOGICAL: Cranial nerves II-XII intact. Sensation to light touch intact. 5/5 strength throughout. DTRs 2+ b/l. Normal speech. Normal gait. PSYCHIATRIC: Cooperative. Good eye contact. Appropriate mood and affect. SKIN: Warm, dry, normal turgor, no rashes or lesions noted. Laboratory Results - last 24 hr 10/15/19 10/15/19 02:15 02:15 WBC 7.7 RBC 4.84 Hgb 15.4 Hct 45.9 MCV 95.0 MCH 31.8 MCHC 33.4 RDW 12.9 Plt Count 139 MPV 10.7 D Absolute Neuts (auto) 5.0 Neutrophils % 65.4 Lymphocytes % 20.9 D Monocytes % 12.2 H Eosinophils % 0.6 Basophils % 0.9 Nucleated RBC % 0 Sodium 140 Potassium 4.0 Chloride 104 Carbon Dioxide 32 Anion Gap 5 L BUN 17.3 Creatinine 1.7 H Est GFR (CKD-EPI)AfAm 49.70 Est GFR (CKD-EPI)NonAf 42.88 Random Glucose 94 Calcium 9.1 Total Bilirubin 0.6 AST 26 ALT 51 Alkaline Phosphatase 85 Creatine Kinase 121 Troponin I < 0.02 Total Protein 7.7 Albumin 4.0 ASSESSMENT/PLAN: Pt is a 58 yo M with PMH of HTN, HLD, and anxiety who presented to the ER after a near syncopal episode (no syncope, no falls). Admitted for evaluation of presyncope. #Pre-Syncope (dehydration vs cardiogenic) Orthostatic vitals negative - NS @ 75 cc/hr - Cardiology consulted to evaluate pt again for possible ECHO - Will hold HCTZ; consider replacing HCTZ with another anti-hypertensive - neurochecks q6h - fall precautions #Possible NOEL Pt's Cr 1.7, similar to last admission - will provide IVF hydration #Hx of HTN - continue home norvasc 10; metoprolol 25 bid #Hx of HLD - continue home lipitor 20 hs #Hx of anxiety - continue home risperidone 0.5 mg daily #DVT Ppx -heparin sq tid #FEN -F - NS@75 cc/hr -E - monitor; replete lytes prn -N - low Na, low fat diet as tolerate Dispo: - admit to tele obs Family Medical History Family History: As Documented Visit type - Emergency Visit Emergency Visit: Yes ED Registration Date: 10/15/19 Care time: The patient presented to the Emergency Department on the above date and was hospitalized for further evaluation of their emergent condition. - New Patient This patient is new to me today: Yes Date on this admission: 10/15/19 - Critical Care Critical Care patient: No ATTENDING PHYSICIAN STATEMENT I saw and evaluated the patient. I reviewed the resident's note and discussed the case with the resident. I agree with the resident's findings and plan as documented. SUBJECTIVE: OBJECTIVE: ASSESSMENT AND PLAN:
[2019-10-15 07:13] LABS: BASO % 0.2 % (0-2.0); EOS % 0.3 % (0-4.5); HEMATOCRIT 43.4 % (35.4-49); HEMOGLOBIN 14.7 GM/dL (11.7-16.9); LYMPH % 26.7 % (8-40); MCH 31.6 pg (25.7-33.7); MCHC 33.8 g/dl (32.0-35.9); MEAN CELL VOLUME 93.5 fl (80-96); MEAN PLT VOLUME 10.5 fl (7.5-11.1); NEUT % 62.8 % (42.8-82.8); PLATELET COUNT 136 K/MM3 (134-434); RBC 4.64 M/mm3 (4.00-5.60); RDW 12.6 % (11.9-15.9)
[2019-10-15 07:46] LABS: ALBUMIN 3.8 g/dl (3.4-5.0); BILIRUBIN,TOTAL 0.6 mg/dL (0.2-1); BLOOD UREA NITROGEN 13.9 mg/dL (7-18); CALCIUM 8.6 mg/dL (8.5-10.1); CREATININE 1.5 mg/dL (0.55-1.3); MAGNESIUM 2.1 mg/dL (1.8-2.4); PHOSPHOROUS 3.4 mg/dL (2.5-4.9); POTASSIUM 3.8 mmol/L (3.5-5.1); TOT PROT 7.1 g/dl (6.4-8.2)
[2019-10-15] MEDS ORDERED: amLODIPine BESYLATE 10 MG TABLET (FP) PO SCH (10:00)
[2019-10-15] MEDS ORDERED: POTASSIUM CHLORIDE TABS 10 MEQ TABLET.ER (FP) PO SCH (10:00)
[2019-10-15] MEDS ORDERED: ASPIRIN 325 MG TABLET PO SCH (10:00)
[2019-10-15] MEDS ORDERED: ENOXAPARIN NA (PORCINE) 40 MG/0.4 ML DISP.SYRIN SQ SCH (10:00)
[2019-10-15] MEDS ORDERED: risperiDONE 0.5 MG TABLET PO SCH (10:00)
[2019-10-15] MEDS ORDERED: METOPROLOL TARTRATE 25 MG TABLET (FP) PO SCH (10:00)
[2019-10-15] MEDS ORDERED: METOPROLOL TARTRATE 25 MG TABLET (FP) PO ONE (10:27)
--- NOTE | 2019-10-15 10:44 | EKG ---
Test Reason : Blood Pressure : / mmHG Vent. Rate : 060 BPM Atrial Rate : 060 BPM P-R Int : 168 ms QRS Dur : 082 ms QT Int : 410 ms P-R-T Axes : 011 082 030 degrees QTc Int : 410 ms NORMAL SINUS RHYTHM NORMAL ECG WHEN COMPARED WITH ECG OF 07-OCT-2019 16:29, NONSPECIFIC T WAVE ABNORMALITY NO LONGER EVIDENT IN LATERAL LEADS Confirmed by ED HEDRICK MD ([id number]) on 10/15/2019 10:44:01 AM Referred By: Confirmed By:ED HEDRICK MD
[2019-10-15 13:09] VITALS: BP 124/86; PULSE 72; TEMP 98.8
[2019-10-15] MEDS ORDERED: HEPARIN NA (PORCINE) 5,000 UNITS/ML 1ML VIAL SQ SCH (14:00)
--- NOTE | 2019-10-15 14:14 | PN ---
Teaching Attending Note Name of Resident: Pricilla Gant ATTENDING PHYSICIAN STATEMENT I saw and evaluated the patient. I reviewed the resident's note and discussed the case with the resident. I agree with the resident's findings and plan as documented. SUBJECTIVE: Patient resting, feels well OBJECTIVE: Vital Signs Period Temp Pulse Resp BP Sys/Dia Pulse Ox Last 24 Hr 98.2 F-98.8 F 65-75 18-20 124-144/74-90 98-99 Physical Exam as per resident note ASSESSMENT AND PLAN: 58 y/o M with PMh as noted who presents with a presyncopal episode Pre-syncope: [place] in setting of dehydration Patient feels well this morning Will stop HCTZ at this time patient encourage to drink for fluids daily, titrate drinking fluids to light yellow/clear urine Cardiac workup completed on last admission Can consider obtaining a loop recorder as an outpatient if symptoms persist tele reviewed, occasional PVC, no signs of arrhythmia noted Orthostatic vitals negative can discharge home at this time.
--- NOTE | 2019-10-15 17:57 | DS ---
Physical Exam: SUBJECTIVE: No overnight events. Patient seen and examined. No complaints. Endorses feeling well. OBJECTIVE: Vital Signs Period Temp Pulse Resp BP Sys/Dia Pulse Ox Last 24 Hr 98.2 F-98.8 F 65-75 18-20 124-144/74-90 98-99 PHYSICAL EXAM Orthostatics vitals negative for orthostatic hypotension GENERAL: The patient is awake, alert, and fully oriented, in no acute distress. HEAD: Normal with no signs of trauma. EYES: PERRL, extraocular movements intact, sclera anicteric, conjunctiva injection that pt attributed to sleeping issues ENT: Ears normal, nares patent, oropharynx clear without exudates, moist mucous membranes. NECK: Trachea midline, full range of motion, supple. LUNGS: Breath sounds equal, clear to auscultation bilaterally, no wheezes, no crackles, no accessory muscle use. HEART: Regular rate and rhythm, S1, S2 without murmur, rub or gallop. ABDOMEN: Soft, nontender, nondistended, normoactive bowel sounds, no guarding, no rebound, no hepatosplenomegaly, no masses. EXTREMITIES: 2+ pulses, warm, well-perfused, no edema. NEUROLOGICAL: Cranial nerves II through XII grossly intact. Normal speech, gait not observed. PSYCH: Normal mood, normal affect. SKIN: Warm, dry, normal turgor, no rashes or lesions noted. LABS Laboratory Results - last 24 hr 10/15/19 10/15/19 10/15/19 02:15 02:15 06:28 WBC 7.7 6.0 RBC 4.84 4.64 Hgb 15.4 14.7 Hct 45.9 43.4 MCV 95.0 93.5 MCH 31.8 31.6 MCHC 33.4 33.8 RDW 12.9 12.6 Plt Count 139 136 MPV 10.7 D 10.5 Absolute Neuts (auto) 5.0 3.8 Neutrophils % 65.4 62.8 Lymphocytes % 20.9 D 26.7 D Monocytes % 12.2 H 10.0 Eosinophils % 0.6 0.3 Basophils % 0.9 0.2 Nucleated RBC % 0 0 Sodium 140 Potassium 4.0 Chloride 104 Carbon Dioxide 32 Anion Gap 5 L BUN 17.3 Creatinine 1.7 H Est GFR (CKD-EPI)AfAm 49.70 Est GFR (CKD-EPI)NonAf 42.88 Random Glucose 94 Calcium 9.1 Phosphorus Magnesium Total Bilirubin 0.6 AST 26 ALT 51 Alkaline Phosphatase 85 Creatine Kinase 121 Troponin I < 0.02 Total Protein 7.7 Albumin 4.0 Triglycerides Cholesterol Total LDL Cholesterol HDL Cholesterol TSH 10/15/19 06:28 WBC RBC Hgb Hct MCV MCH MCHC RDW Plt Count MPV Absolute Neuts (auto) Neutrophils % Lymphocytes % Monocytes % Eosinophils % Basophils % Nucleated RBC % Sodium 145 Potassium 3.8 Chloride 108 H Carbon Dioxide 32 Anion Gap 5 L BUN 13.9 Creatinine 1.5 H Est GFR (CKD-EPI)AfAm 57.82 Est GFR (CKD-EPI)NonAf 49.88 Random Glucose 89 Calcium 8.6 Phosphorus 3.4 Magnesium 2.1 Total Bilirubin 0.6 AST 22 ALT 46 Alkaline Phosphatase 79 Creatine Kinase Troponin I Total Protein 7.1 Albumin 3.8 Triglycerides 51 Cholesterol 117 Total LDL Cholesterol 60 HDL Cholesterol 49 TSH 1.46 D HOSPITAL COURSE: 58 YO M PMH HTN, HLD, and anxiety presented s/p near-syncopal episode. Admitted for presyncope evaluation. EKG showed NSR. Orthostatics vitals negative for orthostatic hypotension Pt's symptoms improved IV hydration. Pt was instructed to stop taking hydrochlorothiazide. Creatinine was elevated on admission, similar to recent admission, which improved with IV hydration. Likely 2/2 dehydration. Pt was encouraged to drink fluids daily. Pt was advised to follow- up with resistance brazer for loop recorder to further evaluate other etiologies of his near-syncopal episode. P't symptoms improved. Pt is stable for discharge. Date of Admission:10/15/19 Date of Discharge: 10/15/19 Minutes to complete discharge: 43 Discharge Summary Problems reviewed: Yes Reason For Visit: SYNCOPE Condition: Stable - Instructions Diet, Activity, Other Instructions: You came to the hospital for lightheadedness, dizziness, and weakness. Labs and imaging showed nothing abnormal, except you were dehydrated. You were given IV fluids, which improved your symptoms. A resistance brazer evaluated you. Please STOP your home hydrochlorothiazide as it may lead to lightheadedness and dizziness. You are stable for discharge. MEDICATIONS Please STOP your home medication, hydrochlorothiazide (HCTZ). Please continue your other home medications as prescribed. FOLLOW-UP follow up with cardiology, Dr. Velázquez, regarding your cardiac health. You may need a loop recorder to check for arrhythmias. Please follow-up with your primary care physician, Dr. Mcrae, to discuss your aspirin dosage and to get repeat labwork for Basic Metabolic Panel (BMP) to reevaluate your kidney protein (creatinine) levels. Please also discuss the dosage of aspirin you are taking. Other Instructions: Drink 6-8 glasses of water a day. This will help you avoid dehydration, possibly low blood pressure, and passing out. Please call 911 or come directly to the emergency department if you experience loss of alertness/awareness, loss of function, unusual headache, vision change, difficulty speaking, numbness, tingling, chest pain, shortness of breath, unusual bleeding, or any alarming symptoms. Referrals: Josafat Velázquez MD [Staff Physician] - (history of lightheadness, dizziness evaluation for loop recorder ) Briseyda Mcrae [Non Staff, Medical] - Disposition: HOME - Home Medications Comprehensive Discharge Medication List: Ambulatory Orders Atorvastatin Ca [Lipitor] 20 mg PO HS 04/21/17 Potassium Chloride 10 meq PO DAILY 01/06/19 Amlodipine Besylate [Norvasc -] 10 mg PO DAILY 10/07/19 Metoprolol Tartrate [Lopressor -] 25 mg PO BID 10/07/19 Risperidone 0.5 mg PO BID 10/07/19 Aspirin 325 mg PO DAILY 10/15/19 Citalopram Hydrobromide [Celexa -] 10 mg PO DAILY 10/15/19 This patient is new to me today: Yes Date on this admission: 10/15/19 Emergency Visit: No Critical Care patient: No - Discharge Referral Referred to [facility] No ATTENDING PHYSICIAN STATEMENT I saw and evaluated the patient. I reviewed the resident's note and discussed the case with the resident. I agree with the resident's findings and plan as documented. SUBJECTIVE: OBJECTIVE: ASSESSMENT AND PLAN:
[2019-10-15] MEDS ORDERED: ATORVASTATIN CA 20 MG TABLET (FP) PO SCH (22:00)
== END 2019-10-15 17:00 | disposition home or self-care (01) ==
LOC: JER 00:26 → JERBED 02:51 → INTOOBSV 05:24 → OBSVTOIN 05:24 → J4S 05:49
PROVIDERS: ADMIT Internal Medicine; ATTEND Internal Medicine
PROC: 3E023GC Introduction of Other Therapeutic Substance into Muscle, Percutaneous Approach (ICD-10-PCS; principal; 2019-10-15)
PROC: 3E0337Z Introduction of Electrolytic and Water Balance Substance into Peripheral Vein, Percutaneous Approach (ICD-10-PCS; 2019-10-15)
DX: E86.0 Dehydration (principal); R55 Syncope and collapse; I10 Essential (primary) hypertension; E78.5 Hyperlipidemia, unspecified; F41.9 Anxiety disorder, unspecified; Z29.9 Encounter for prophylactic measures, unspecified; Z91.010 Allergy to peanuts
CPT/HCPCS: 36415; 71045-TC-FY; 80053; 80061; 82550; 83721; 83735; 84100; 84443; 84484; 85025; 93005; 93010; 99285-25; G0378; J1644; U0003